=== PATIENT | male | born 1990 | race Caucasian/White ===

== ENCOUNTER 2022-12-15 21:18 | Inpatient (IN) ==
[2022-12-15] MEDS ORDERED: PLASMA-LYTE A 2,000 ML IV ONE (21:50)
[2022-12-15] MEDS ORDERED: DKA GOAL RANGE 150-250 mg/dl ONE (22:03)
[2022-12-15] MEDS ORDERED: STAT IV Infusion **Titration per Protocol STA (22:03)
[2022-12-15] MEDS ORDERED: PHARMACY GLYCEMIC MGMT CONSULT PRN (22:03)
[2022-12-15] MEDS ORDERED: NovoLIN-R INSULIN PER UNIT CHARGE IV STA (22:03)
[2022-12-15 22:05] LABS: Basophils # (auto) 0.09 K/uL (0-0.2); Basophils % (auto) 0.5 %; Eosinophils # (auto) 0.01 K/uL (0-0.50); Eosinophils % (auto) 0.1 %; Hematocrit (blood only) 42.3 % (42.0-52.0); Immature Granulocytes # (auto) 0.23 K/uL (0.01-0.20); Immature Granulocytes % (auto) 1.2 %; Lymphocytes # (auto) 1.89 K/uL (1.2-3.4); Lymphocytes % (auto) 9.7 %; Mean Corpuscular Hemoglobin 30.4 pg (25.0-34.0); Mean Corpuscular Hgb Conc 33.1 g/dL (32.0-36.0); Mean Platelet Volume 11.3 fL (9.4-12.4); Monocytes # (auto) 1.13 K/uL (0.11-0.59); Monocytes % (auto) 5.8 %; Neutrophils # (auto) 16.22 K/uL (1.40-6.50); Neutrophils % (auto) 82.7 %; Platelet Count 260 K/uL (130-400); RDW Coefficient of Variation 12.1 % (11.5-14.5); RDW Standard Deviation 41.2 fL (36.4-46.3); White Blood Count 19.57 K/ul (4.8-10.8)
[2022-12-15 22:13] LABS: iSTAT Blood Urea Nitrogen 43 mg/dl (7-18); iSTAT Carbon Dioxide 7 mmol/L (24-31); iSTAT Chloride 97 mmol/L (101-112); iSTAT Creatinine 1.3 mg/dl (0.6-1.3); iSTAT Glucose > 700 mg/dl (70-99); iSTAT Hematocrit 46 % (42-52); iSTAT Hemoglobin 15.6 g/dl (14.0-18.0); iSTAT Ionized Calcium 1.19 mmol/l (1.12-1.32); iSTAT Potassium 6.9 mmol/L (3.3-5.0); iSTAT Sodium 123 mmol/L (135-144)
[2022-12-15 22:15] LABS: INR 0.9 (0.9-1.1); Prothrombin Time 9.8 Seconds (9.0-12.0)
[2022-12-15] MEDS ORDERED: INSULIN REGULAR 250 UNITS in SODIUM CHLORIDE 0.9% 247.5 ML IV SCH (22:15)
[2022-12-15] MEDS ORDERED: NovoLIN-R BOLUS FROM BAG IV ONE (22:15)
[2022-12-15 22:27] LABS: Appearance Urine Clear (Clear); Bilirubin Urine Negative (Negative); Blood Urine Negative (Negative); Color Urine Yellow; Glucose Urine UA 3+ (Negative); Ketones Urine 4+ (Negative); Leukocyte Esterase Urine Negative (Negative); Nitrite Urine Negative (Negative); Protein Urine Negative (Negative); Specific Gravity Urine 1.026 (1.000-1.030); Urobilinogen Urine Negative (Negative)
[2022-12-15] MEDS ORDERED: ONDANSETRON INJ 2 MG/ML 2 ML VIAL IV STA (22:34)
[2022-12-15] MEDS ORDERED: FAMOTIDINE 20MG IV PUSH 20 MG/5 ML SYR IV STA (22:34)
[2022-12-15 22:44] LABS: Albumin Globulin Ratio 1.5 (0.9-2); Albumin Level 4.4 gm/dl (3.4-5.0); Bilirubin,Total 0.6 mg/dl (0.2-1.0); Calcium 10.2 mg/dl (8.6-10.3); Est GFR (African American) 57.6 ml/min; Est GFR (Non-African American) 49.7 ml/min; Globulin 2.9 gm/dl (2.5-4.0); Magnesium 2.6 mg/dl (1.7-2.4); Potassium 6.6 mmol/L (3.5-5.1); Total Protein 7.3 gm/dl (6.0-8.3)
[2022-12-15] MEDS ORDERED: PLASMA-LYTE A 1,000 ML IV ONE (23:01)
[2022-12-15] MEDS ORDERED: CALCIUM GLUCONATE 1,000 MG/60 ML BAG IV STA (23:39)
[2022-12-15] MEDS ORDERED: SODIUM BICARB 8.4% INJ 50 MEQ/50 ML SYR IV STA (23:39)
[2022-12-15 23:53] LABS: Base Excess VBG -23.2 mEq/L; HCO3 VBG 5 mmol/L; Oxygen Saturation VBG 62.3 %; PCO2 VBG 19 mmHg (38-50); PO2 VBG 39 mmHg; pH VBG 7.06 (7.36-7.41)
--- NOTE | 2022-12-16 00:23 | History & Physical Report ---
Date of Service December 16, 2022 Assessment & Plan (1) Hyperglycemic crisis in diabetes mellitus: Plan: HHS/DKA combo hx DM1, suboptimal control as of recent hemoglobin A1c of 13.3 last September 2022 Secondary to medication noncompliance, mild cognitive impairment Hyperkalemia, ARF, AGMA secondary to illness Episodic encephalopathy secondary to illness hypertension, stable, patient not on maintenance medications hyperlipidemia as per records hx schizoaffective disorder/borderline personality disorder/anxiety/mood disorder, stable as per patient chronic anemia, hemoglobin better than baseline likely secondary to hemoconcentration ongoing vape use ICU IVF, IV insulin Pharmacy glycemic control consultation as ordered by ER provider Update hemoglobin A1c Monitor creatinine response to IVF Calcium gluconate 1 dose for hyperkalemia Resume home neuropsychotropic meds once patient more awake. Nicotine patch as needed PT OT once medically stable DVT prophylaxis Heparin subcu Full code Total critical care time was 45 minutes. Text document was generated using [employer] voice recognition software. It may contain grammatical or spelling errors. Kindly contact undersigned for clarification of any documentation item in question. History of Present Illness Chief Complaint: High sugars, DKA-ing Primary Care Provider: Dr. Nolen History obtained from patient and records. Medical history significant for DM 1, hypertension, hyperlipidemia, GERD, history SMA syndrome, schizoaffective disorder/borderline personality disorder/anxiety/mood disorder, mild cognitive impairment, chronic anemia (baseline hemoglobin of 11), ongoing vape use. Patient diagnosed to have DM 1 since age 9. Multiple admissions at the [facility] since 2018 for DKA. Four admissions so far in 2022. Last confinement was 2 months ago. Patient in [place] the last 2 days to talk at a mental health conference. He left his insulin supplies at home in [facility]. Last night, patient noted nausea, vomiting, abdominal discomfort and shortness of breath which happens when he starts 'DKA-ing'. No actual chest pain or headache symptoms. Blood sugar 900s upon arrival at the ER. Multiple IVF boluses and IV insulin initiated at the ER. Patient starting to feel better. Medical History as above Surgical History : Tonsillectomy/adenoidectomy, cholecystectomy, duodenojejunostomy Family History : DM, heart disease Personal/Social history : Vape use, no EtOH intake Allergies Allergy/AdvReac Type Severity Reaction Status Date / Time No Known Allergies Allergy Verified 06/06/23 22:06 Home Medications Medication Instructions Recorded Confirmed Type acetaminophen 325 mg tablet 650 mg PO Q4H PRN PAIN/FEVER 12/15/22 12/15/22 History (Tylenol) aripiprazole 2 mg tablet (Abilify) 2 mg PO DAILY 12/15/22 12/15/22 History docusate sodium 100 mg capsule 100 mg PO DAILY 12/15/22 12/15/22 History famotidine 20 mg tablet 20 mg PO DAILY 12/15/22 12/15/22 History gabapentin 300 mg capsule 300 mg PO TID 12/15/22 12/15/22 History insulin aspart U-100 100 unit/mL 10 unit subcut TIDM 12/15/22 12/15/22 History (3 mL) subcutaneous pen (Novolog FlexPen U-100 Insulin aspart) insulin glargine 100 unit/mL (3 100 unit subcut QAM 12/15/22 12/15/22 History mL) subcutaneous pen (Lantus Solostar U-100 Insulin) lithium carbonate 450 mg 450 mg PO HS 12/15/22 12/15/22 History tablet,extended release ondansetron HCl 4 mg tablet 4 mg PO Q8H PRN NAUSEA/VOMITING 12/15/22 12/15/22 History pantoprazole 40 mg tablet,delayed 40 mg PO DAILY 12/15/22 12/15/22 History release trazodone 100 mg tablet 100 mg PO HS PRN Sleep 12/15/22 12/15/22 History venlafaxine 150 mg 150 mg PO QAM 12/15/22 12/15/22 History capsule,extended release 24 hr (Effexor XR) Past Med/Surg History Medical History (Updated 12/16/22 @ 06:26 by JONATHAN Guzman) Anxiety disorder Schizoaffective disorder Type 1 diabetes Social History Smoking Status: Current every day smoker Second Hand Exposure: Yes; Do You Dip or Chew Tobacco: No; Tobacco Cessation Education Requested by Patient: No Hx Alcohol Use: No Hx Substance Use: No Preferred Language: [place] Communication Ability: Effective Picture Booker Required: No Beliefs That Will Affect Care: None Current Living Situation: Alone Other Information That Helps Us Care for You: No Feels Safe at Home: Yes Safety Concerns: Feels Safe At This Time Assistive Devices: Glasses Review of Systems Review of Systems: As per HPI, all other systems reviewed and negative Physical Exam Physical Exam: GENERAL: Episodic lethargy, slightly uncomfortable, pleasant, no respiratory distress SKIN: Pallor, warm HEENT: Bespectacled, pale palpebral conjunctivae, no ptosis, dry buccal mucosa NECK : Supple, no tenderness CHEST : CTA, no tenderness HEART : Tachycardic, no obvious murmurs ABDOMEN: Some distention, minimal epigastric tenderness EXTREMITIES : No LE swelling/tenderness, no other conspicuous deformities noted NEUROLOGIC : Coherent, no facial asymmetry, no other gross focality Results & Data Results & Data Vital Signs (Past 12 Hours) Vital Signs Temp Pulse Pulse Resp BP BP Pulse Ox 12/15/22 23:30 103 H 19 134/59 L 99 12/15/22 23:00 103 H 25 H 132/57 L 100 12/15/22 22:09 116 H 24 147/66 H 97 12/15/22 22:09 98 12/15/22 21:33 113 H 12/15/22 21:32 37 C 108 H 24 147/66 H 96 O2 Del Method 12/15/22 23:30 Room Air 12/15/22 23:00 Room Air 12/15/22 22:09 Room Air 12/15/22 22:09 Room Air 12/15/22 21:33 12/15/22 21:32 Room Air Laboratory Results Laboratory Results WBC 19.57 K/ul (4.8-10.8) H 12/15/22 21:30 RBC 4.60 M/uL (4.70-6.10) L 12/15/22 21:30 Hgb 14.0 g/dl (14.0-18.0) 12/15/22 21:30 POC Hgb 15.6 g/dl (14.0-18.0) 12/15/22 22:01 Hct 42.3 % (42.0-52.0) 12/15/22 21:30 POC Hct 46 % (42-52) 12/15/22 22:01 MCV 92.0 fL (80.0-100.0) 12/15/22 21:30 MCH 30.4 pg (25.0-34.0) 12/15/22 21:30 MCHC 33.1 g/dL (32.0-36.0) 12/15/22 21:30 RDW Std Deviation 41.2 fL (36.4-46.3) 12/15/22 21:30 RDW Coeff of Jaya 12.1 % (11.5-14.5) 12/15/22 21:30 Plt Count 260 K/uL (130-400) 12/15/22 21:30 MPV 11.3 fL (9.4-12.4) 12/15/22 21:30 Immature Gran % (Auto) 1.2 % 12/15/22 21:30 Neut % (Auto) 82.7 % 12/15/22 21:30 Lymph % (Auto) 9.7 % 12/15/22 21:30 [place] % (Auto) 5.8 % 12/15/22 21:30 Eos % (Auto) 0.1 % 12/15/22 21:30 Baso % (Auto) 0.5 % 12/15/22 21:30 Neut # (Auto) 16.22 K/uL (1.40-6.50) H 12/15/22 21:30 Lymph # (Auto) 1.89 K/uL (1.2-3.4) 12/15/22 21:30 [place] # (Auto) 1.13 K/uL (0.11-0.59) H 12/15/22 21:30 Eos # (Auto) 0.01 K/uL (0-0.50) 12/15/22 21:30 Baso # (Auto) 0.09 K/uL (0-0.2) 12/15/22 21:30 Immature Gran # (Auto) 0.23 K/uL (0.01-0.20) H 12/15/22 21:30 PT 9.8 Seconds (9.0-12.0) 12/15/22 21:30 INR 0.9 (0.9-1.1) 12/15/22 21:30 VBG pH 7.06 (7.36-7.41) L 12/15/22 23:40 VBG pCO2 19 mmHg (38-50) L 12/15/22 23:40 VBG pO2 39 mmHg 12/15/22 23:40 VBG HCO3 5 mmol/L 12/15/22 23:40 VBG O2 Saturation 62.3 % 12/15/22 23:40 VBG Base Excess -23.2 mEq/L 12/15/22 23:40 POC Sodium 123 mmol/L (135-144) L 12/15/22 22:01 Sodium 124 mmol/L (136-145) L 12/15/22 21:30 POC Potassium 6.9 mmol/L (3.3-5.0) H* 12/15/22 22:01 Potassium 6.6 mmol/L (3.5-5.1) H* 12/15/22 21:30 POC Chloride 97 mmol/L (101-112) L 12/15/22 22:01 Chloride 83 mmol/L (98-107) L 12/15/22 21:30 Carbon Dioxide 6 mmol/L (21-32) L* 12/15/22 21:30 POC Total CO2 7 mmol/L (24-31) L* 12/15/22 22:01 Anion Gap 35 (3-11) H 12/15/22 21:30 POC Anion Gap 27.0 mmol/L (16-25) H 12/15/22 22:01 POC BUN 43 mg/dl (7-18) H 12/15/22 22:01 BUN 48 mg/dl (6-23) H 12/15/22 21:30 Creatinine 1.78 mg/dl (0.6-1.4) H 12/15/22 21:30 POC Creatinine 1.3 mg/dl (0.6-1.3) 12/15/22 22:01 Est Cr Clr Drug Dosing 64.0 ml/min 12/15/22 21:30 Est GFR ( Amer) 57.6 ml/min 12/15/22 21:30 Est GFR (Non-Af Amer) 49.7 ml/min 12/15/22 21:30 BUN/Creatinine Ratio 27.0 (10-20) H 12/15/22 21:30 Glucose 964 mg/dl (70-99(Fasting)) H* 12/15/22 21:30 POC Glucose > 600 mg/dl (70-99) H* 12/15/22 23:24 POC Glucose (other) > 700 mg/dl (70-99) H* 12/15/22 22:01 Osmolality 355 mOsm/kg (280-300) H* 12/15/22 21:30 Lactate 3.4 mmol/L (0.4-2.0) H* 12/15/22 23:41 Calcium 10.2 mg/dl (8.6-10.3) 12/15/22 21:30 POC Ioniz Calcium [place] 1.19 mmol/l (1.12-1.32) 12/15/22 22:01 Magnesium 2.6 mg/dl (1.7-2.4) H 12/15/22 21:30 Total Bilirubin 0.6 mg/dl (0.2-1.0) 12/15/22 21:30 AST 27 U/L (13-39) 12/15/22 21:30 ALT 32 U/L (7-52) 12/15/22 21:30 Alkaline Phosphatase 154 U/L (34-104) H 12/15/22 21:30 Total Protein 7.3 gm/dl (6.0-8.3) 12/15/22 21:30 Albumin 4.4 gm/dl (3.4-5.0) 12/15/22 21:30 Globulin 2.9 gm/dl (2.5-4.0) 12/15/22 21:30 Albumin/Globulin Ratio 1.5 (0.9-2) 12/15/22 21:30 Procalcitonin 0.30 ng/ml (0-0.5) 12/15/22 21:30 TSH 0.414 uIu/ml (0.300-4.500) 12/15/22 21:30 Urine Color Yellow 12/15/22 22:05 Urine Appearance Clear (Clear) 12/15/22 22:05 Urine pH 5.0 (4.5-7.5) 12/15/22 22:05 Ur Specific [place] 1.026 (1.000-1.030) 12/15/22 22:05 Urine Protein Negative (Negative) 12/15/22 22:05 Urine Glucose (UA) 3+ (Negative) H 12/15/22 22:05 Urine Ketones 4+ (Negative) H 12/15/22 22:05 Urine Blood Negative (Negative) 12/15/22 22:05 Urine Nitrite Negative (Negative) 12/15/22 22:05 Urine Bilirubin Negative (Negative) 12/15/22 22:05 Urine Urobilinogen Negative (Negative) 12/15/22 22:05 Ur Leukocyte Esterase Negative (Negative) 12/15/22 22:05 SARS-CoV-2, RNA, NAAT NEGATIVE (NEGATIVE) 12/15/22 22:25 Diagnostic Findings Chest x-ray as per my interpretation elevated right hemidiaphragm, no infiltrate EKG as per my interpretation : Rate 105, sinus tachycardia, normal axis, no ischemia
[2022-12-16] MEDS ORDERED: oxyCODONE HCL IR 5 MG TAB (IMMEDIATE RELEASE) PO PRN (00:29)
[2022-12-16] MEDS ORDERED: PROMETHAZINE HCL 6.25 MG in SODIUM CHLORIDE 0.9% 50 ML IV PRN (00:29)
[2022-12-16] MEDS ORDERED: ACETAMINOPHEN 325 MG TAB PO PRN ×2 (00:29→01:06)
[2022-12-16 00:30] LABS: BUN Creatinine Ratio 27.5 (10-20); Calcium 9.4 mg/dl (8.6-10.3); Creatinine Clr Calc Pharmacy 68.3 ml/min; Est GFR (African American) 62.3 ml/min; Est GFR (Non-African American) 53.7 ml/min; Potassium 5.5 mmol/L (3.5-5.1)
[2022-12-16] MEDS ORDERED: SODIUM CHLORIDE 0.9% 1000ML 1,000 ML IV ONE ×2 (00:30→01:30)
--- NOTE | 2022-12-16 01:02 | Emergency Department Note ---
Impression & Plan DKA (diabetic ketoacidosis), Type 1 diabetes, Acute hyperkalemia, Nausea & vomiting, Acute dehydration ED Provider Note NAME: MARY TONY AGE: 32 SEX: M : 1990 ARRIVES VIA: Ambulance INFORMANT: Patient, ED PROVIDER(S): Vasyl Zhneg MD CHIEF COMPLAINT: Nausea vomiting, elevated blood sugar MEDICAL DECISION MAKING: Patient presents for nausea vomiting and elevated blood sugar. The patient does appear to be in DKA. [id number] was obtained along with IV access to IV lines IV fluids given along with IV Zofran. Patient's [id number] does show that the patient has an blood sugar greater than 700 with a Otis greater than 6. The patient was ordered 10 of IV insulin. The patient was also ordered 2 additional liters of IV Plasma-Lyte and then insulin drip was ordered. I did speak with pharmacy pharmacist Antoine in order to help facilitate the insulin drip. The patient's blood work from the lab did show a blood sugar greater than 900. Patient did have a white count 19 believe this is likely reactive given the patient's nausea and vomiting which is occurred throughout today. Platelet count is normal. Kidney function with a creat of 1.78 and potassium of 6.6 with a sodium of 124. Patient's bicarb is 6 with a gap of 35. Magnesium is high at 2.6. Pro-Nasir is not elevated. Patient's lactate of 3.9. Urinalysis does show ketones and glucose. Given the patient's dehydration and DKA I did speak with the on-call hospitalist service Dr. Bauer and patient was admitted to the medicine service. Patient was ordered additional Plasma-Lyte IV fluids. Critical Care: I have personally spent 75 minutes of critical care time in direct management of this patient. This includes bedside care, interpretation of diagnostic studies, and testing, discussion with consultants, patient, and family members, and other require inpatient management activities. This 75 minutes is in excess of all separately billable procedures. Prior /Outside records reviewed: I did review the patient's medication list from [facility]. Differential diagnosis: DKA, hyperglycemia, dehydration gastroenteritis, food borne illness, infections, appendicitis, diverticulitis, inflammatory bowel disease, obstruction, GI bleed, biliary pathology, volvulus, as well as other pathologies. Diagnostics, as interpreted by me: ECG: Sinus tachycardia, rate of 106, normal intervals normal axis no ST elevations. Cardiac monitoring: An order was placed for continuous cardiac monitoring. The monitor shows a rate of 112 with tachycardic and regular rhythm. Patient was placed on pulse oximetry Medical decision rules: None Imaging studies: See below HPI: Patient presents as he is appear at a conference. Patient states that he forgot his insulin. The patient denies any chest pains or shortness of breath. Patient has had associated nausea and vomiting today and has been DKA in the past. No blood in the vomit. Patient does not been able to take anything for his symptoms given his vomiting and nausea. No recent falls or trauma. Patient denies any known sick contacts treatment well water use or antibiotics. Patient does complain of generalized abdominal discomfort but no significant pain. No cough or fever. PAST MEDICAL HISTORY: See Below PAST SURGICAL HISTORY: See Below SOCIAL HISTORY: See Below HOME MEDICATIONS: See Below ALLERGIES: See Below VITALS: See Below PHYSICAL EXAMINATION: GENERAL: Ill in appearance, wearing glasses. Holding an emesis bag. EYE EXAM: Normal conjunctiva. PERRL, no anisocoria and EOM's grossly intact w/o pain. Oropharynx: Dry mucous membranes. NECK: Supple, no nuchal rigidity, no adenopathy, non-tender. No signs of meningismus. FROM of the neck with good chin to chest and neck extension. No stridor. LUNGS: Clear to auscultation. Normal chest wall mechanics. HEART: Tachycardic and regular, no MRG. ABDOMEN: Abdomen soft, mild diffuse discomfort but without peritonitis, no masses, no rebound or guarding. BACK: No CVA TTP. SKIN: No rashes and no bruising. UPPER EXTREMITIES: Upper extremities are grossly normal. LOWER EXTREMITIES: Grossly normal, no edema. NEURO EXAM: A&O x3, cranial nerves II-XII grossly intact, normal speech, moves all 4 extremities. Past Med/Surg History Medical History Anxiety disorder Schizoaffective disorder Type 1 diabetes Surgical History History of tonsillectomy S/P laparoscopic cholecystectomy Social History Smoking Status: Current every day smoker Second Hand Exposure: Yes; Do You Dip or Chew Tobacco: No; Tobacco Cessation Education Requested by Patient: No Hx Alcohol Use: No Hx Substance Use: No Preferred Language: Gambian Communication Ability: Effective Manager Clinical Applications Required: No Beliefs That Will Affect Care: None Current Living Situation: Alone Other Information That Helps Us Care for You: No Feels Safe at Home: Yes Safety Concerns: Feels Safe At This Time Assistive Devices: Other Allergies Allergies Allergy/AdvReac Type Severity Reaction Status Date / Time No Known Allergies Allergy Verified 12/15/22 22:06 Home Meds Home Medications Medication Instructions Recorded Confirmed acetaminophen 325 mg tablet 650 mg PO Q4H PRN PAIN/FEVER 12/15/22 12/15/22 (Tylenol) aripiprazole 2 mg tablet (Abilify) 2 mg PO DAILY 12/15/22 12/15/22 docusate sodium 100 mg capsule 100 mg PO DAILY 12/15/22 12/15/22 famotidine 20 mg tablet 20 mg PO DAILY 12/15/22 12/15/22 gabapentin 300 mg capsule 300 mg PO TID 12/15/22 12/15/22 insulin aspart U-100 100 unit/mL 10 unit subcut TIDM 12/15/22 12/15/22 (3 mL) subcutaneous pen (Novolog FlexPen U-100 Insulin aspart) insulin glargine 100 unit/mL (3 100 unit subcut QAM 12/15/22 12/15/22 mL) subcutaneous pen (Lantus Solostar U-100 Insulin) lithium carbonate 450 mg 450 mg PO HS 12/15/22 12/15/22 tablet,extended release ondansetron HCl 4 mg tablet 4 mg PO Q8H PRN NAUSEA/VOMITING 12/15/22 12/15/22 pantoprazole 40 mg tablet,delayed 40 mg PO DAILY 12/15/22 12/15/22 release trazodone 100 mg tablet 100 mg PO HS PRN Sleep 12/15/22 12/15/22 venlafaxine 150 mg 150 mg PO QAM 12/15/22 12/15/22 capsule,extended release 24 hr (Effexor XR) Results & Data (ED) Vital Signs Vital Signs - 24 hr 12/15/22 21:32 12/15/22 21:33 12/15/22 22:09 Temperature 37 C Temperature Source Oral Pulse Rate 108 H 113 H Pulse Rate [Left Apical] Pulse Rhythm [Left Apical] Pulse Strength [Left Apical] Respiratory Rate 24 Respiratory Effort / Characteristics Spontaneous Respiratory Depth Normal Respiratory Pattern Blood Pressure 147/66 H Blood Pressure [Left Arm] Blood Pressure Mean 93 Blood Pressure Mean [Left Arm] Pulse Oximetry 96 98 Oxygen Delivery Method Room Air Room Air Sepsis Recent Fever Within 48 Hours No Sepsis New/Unexplained Change in Mental Status No Sepsis Action Taken by Nursing No Action Required 12/15/22 22:09 12/15/22 23:00 12/15/22 23:30 Temperature Temperature Source Pulse Rate 103 H 103 H Pulse Rate [Left Apical] 116 H Pulse Rhythm [Left Apical] Regular Pulse Strength [Left Apical] Normal Respiratory Rate 24 25 H 19 Respiratory Effort / Characteristics Spontaneous Respiratory Depth Normal Respiratory Pattern Kussmaul Blood Pressure 132/57 L 134/59 L Blood Pressure [Left Arm] 147/66 H Blood Pressure Mean 82 84 Blood Pressure Mean [Left Arm] 93 Pulse Oximetry 97 100 99 Oxygen Delivery Method Room Air Room Air Room Air Sepsis Recent Fever Within 48 Hours Sepsis New/Unexplained Change in Mental Status Sepsis Action Taken by Nursing 12/16/22 00:00 Temperature Temperature Source Pulse Rate 105 H Pulse Rate [Left Apical] Pulse Rhythm [Left Apical] Pulse Strength [Left Apical] Respiratory Rate 19 Respiratory Effort / Characteristics Respiratory Depth Respiratory Pattern Blood Pressure 122/62 Blood Pressure [Left Arm] Blood Pressure Mean 82 Blood Pressure Mean [Left Arm] Pulse Oximetry 99 Oxygen Delivery Method Room Air Sepsis Recent Fever Within 48 Hours Sepsis New/Unexplained Change in Mental Status Sepsis Action Taken by [facility] Medications Current Medication List: was personally reviewed by me Laboratory Data Attestation: I reviewed the patient's lab results. 12/15/22 21:30 12/15/22 23:37 Lab Results 12/15/22 12/15/22 12/15/22 Range/Units 21:30 21:30 21:30 WBC 19.57 H (4.8-10.8) K/ul RBC 4.60 L (4.70-6.10) M/uL Hgb 14.0 (14.0-18.0) g/dl POC Hgb (14.0-18.0) g/dl Hct 42.3 (42.0-52.0) % POC Hct (42-52) % MCV 92.0 (80.0-100.0) fL MCH 30.4 (25.0-34.0) pg MCHC 33.1 (32.0-36.0) g/dL RDW Std Deviation 41.2 (36.4-46.3) fL RDW Coeff of Jaya 12.1 (11.5-14.5) % Plt Count 260 (130-400) K/uL MPV 11.3 (9.4-12.4) fL Immature Gran % (Auto) 1.2 % Neut % (Auto) 82.7 % Lymph % (Auto) 9.7 % Sutter % (Auto) 5.8 % Eos % (Auto) 0.1 % Baso % (Auto) 0.5 % Neut # (Auto) 16.22 H (1.40-6.50) K/uL Lymph # (Auto) 1.89 (1.2-3.4) K/uL Sutter # (Auto) 1.13 H (0.11-0.59) K/uL Eos # (Auto) 0.01 (0-0.50) K/uL Baso # (Auto) 0.09 (0-0.2) K/uL Immature Gran # (Auto) 0.23 H (0.01-0.20) K/uL PT 9.8 (9.0-12.0) Seconds INR 0.9 (0.9-1.1) VBG pH (7.36-7.41) VBG pCO2 (38-50) mmHg VBG pO2 mmHg VBG HCO3 mmol/L VBG O2 Saturation % VBG Base Excess mEq/L POC Sodium (135-144) mmol/L Sodium 124 L (136-145) mmol/L POC Potassium (3.3-5.0) mmol/L Potassium 6.6 H* (3.5-5.1) mmol/L POC Chloride (101-112) mmol/L Chloride 83 L (98-107) mmol/L Carbon Dioxide 6 L* (21-32) mmol/L POC Total CO2 (24-31) mmol/L Anion Gap 35 H (3-11) POC Anion Gap (16-25) mmol/L POC BUN (7-18) mg/dl BUN 48 H (6-23) mg/dl Creatinine 1.78 H (0.6-1.4) mg/dl POC Creatinine (0.6-1.3) mg/dl Est Cr Clr Drug Dosing 64.0 ml/min Est GFR ( Amer) 57.6 ml/min Est GFR (Non-Af Amer) 49.7 ml/min BUN/Creatinine Ratio 27.0 H (10-20) Glucose 964 H* (70-99(Fasting)) mg/dl POC Glucose (70-99) mg/dl POC Glucose (other) (70-99) mg/dl Osmolality (280-300) mOsm/kg Lactate (0.4-2.0) mmol/L Calcium 10.2 (8.6-10.3) mg/dl POC Ioniz Calcium Geovanna (1.12-1.32) mmol/l Phosphorus (2.5-4.9) mg/dl Magnesium 2.6 H (1.7-2.4) mg/dl Total Bilirubin 0.6 (0.2-1.0) mg/dl AST 27 (13-39) U/L ALT 32 (7-52) U/L Alkaline Phosphatase 154 H (34-104) U/L Total Protein 7.3 (6.0-8.3) gm/dl Albumin 4.4 (3.4-5.0) gm/dl Globulin 2.9 (2.5-4.0) gm/dl Albumin/Globulin Ratio 1.5 (0.9-2) Lipase (11-82) U/L Procalcitonin (0-0.5) ng/ml TSH (0.300-4.500) uIu/ml Urine Color Urine Appearance (Clear) Urine pH (4.5-7.5) Ur Specific Uriah (1.000-1.030) Urine Protein (Negative) Urine Glucose (UA) (Negative) Urine Ketones (Negative) Urine Blood (Negative) Urine Nitrite (Negative) Urine Bilirubin (Negative) Urine Urobilinogen (Negative) Ur Leukocyte Esterase (Negative) [place] (0.6-1.2) mmol/L SARS-CoV-2, RNA, NAAT (NEGATIVE) 12/15/22 12/15/22 12/15/22 Range/Units 21:30 21:30 21:30 WBC (4.8-10.8) K/ul RBC (4.70-6.10) M/uL Hgb (14.0-18.0) g/dl POC Hgb (14.0-18.0) g/dl Hct (42.0-52.0) % POC Hct (42-52) % MCV (80.0-100.0) fL MCH (25.0-34.0) pg MCHC (32.0-36.0) g/dL RDW Std Deviation (36.4-46.3) fL RDW Coeff of Jaya (11.5-14.5) % Plt Count (130-400) K/uL MPV (9.4-12.4) fL Immature Gran % (Auto) % Neut % (Auto) % Lymph % (Auto) % Sutter % (Auto) % Eos % (Auto) % Baso % (Auto) % Neut # (Auto) (1.40-6.50) K/uL Lymph # (Auto) (1.2-3.4) K/uL Sutter # (Auto) (0.11-0.59) K/uL Eos # (Auto) (0-0.50) K/uL Baso # (Auto) (0-0.2) K/uL Immature Gran # (Auto) (0.01-0.20) K/uL PT (9.0-12.0) Seconds INR (0.9-1.1) VBG pH (7.36-7.41) VBG pCO2 (38-50) mmHg VBG pO2 mmHg VBG HCO3 mmol/L VBG O2 Saturation % VBG Base Excess mEq/L POC Sodium (135-144) mmol/L Sodium (136-145) mmol/L POC Potassium (3.3-5.0) mmol/L Potassium (3.5-5.1) mmol/L POC Chloride (101-112) mmol/L Chloride (98-107) mmol/L Carbon Dioxide (21-32) mmol/L POC Total CO2 (24-31) mmol/L Anion Gap (3-11) POC Anion Gap (16-25) mmol/L POC BUN (7-18) mg/dl BUN (6-23) mg/dl Creatinine (0.6-1.4) mg/dl POC Creatinine (0.6-1.3) mg/dl Est Cr Clr Drug Dosing ml/min Est GFR ( Amer) ml/min Est GFR (Non-Af Amer) ml/min BUN/Creatinine Ratio (10-20) Glucose (70-99(Fasting)) mg/dl POC Glucose (70-99) mg/dl POC Glucose (other) (70-99) mg/dl Osmolality 355 H* (280-300) mOsm/kg Lactate (0.4-2.0) mmol/L Calcium (8.6-10.3) mg/dl POC Ioniz Calcium Geovanna (1.12-1.32) mmol/l Phosphorus (2.5-4.9) mg/dl Magnesium (1.7-2.4) mg/dl Total Bilirubin (0.2-1.0) mg/dl AST (13-39) U/L ALT (7-52) U/L Alkaline Phosphatase (34-104) U/L Total Protein (6.0-8.3) gm/dl Albumin (3.4-5.0) gm/dl Globulin (2.5-4.0) gm/dl Albumin/Globulin Ratio (0.9-2) Lipase (11-82) U/L Procalcitonin 0.30 (0-0.5) ng/ml TSH 0.414 (0.300-4.500) uIu/ml Urine Color Urine Appearance (Clear) Urine pH (4.5-7.5) Ur Specific Uriah (1.000-1.030) Urine Protein (Negative) Urine Glucose (UA) (Negative) Urine Ketones (Negative) Urine Blood (Negative) Urine Nitrite (Negative) Urine Bilirubin (Negative) Urine Urobilinogen (Negative) Ur Leukocyte Esterase (Negative) [place] (0.6-1.2) mmol/L SARS-CoV-2, RNA, NAAT (NEGATIVE) 12/15/22 12/15/22 12/15/22 Range/Units 21:50 22:01 22:05 WBC (4.8-10.8) K/ul RBC (4.70-6.10) M/uL Hgb (14.0-18.0) g/dl POC Hgb 15.6 (14.0-18.0) g/dl Hct (42.0-52.0) % POC Hct 46 (42-52) % MCV (80.0-100.0) fL MCH (25.0-34.0) pg MCHC (32.0-36.0) g/dL RDW Std Deviation (36.4-46.3) fL RDW Coeff of Jaya (11.5-14.5) % Plt Count (130-400) K/uL MPV (9.4-12.4) fL Immature Gran % (Auto) % Neut % (Auto) % Lymph % (Auto) % [place] % (Auto) % Eos % (Auto) % Baso % (Auto) % Neut # (Auto) (1.40-6.50) K/uL Lymph # (Auto) (1.2-3.4) K/uL Sutter # (Auto) (0.11-0.59) K/uL Eos # (Auto) (0-0.50) K/uL Baso # (Auto) (0-0.2) K/uL Immature Gran # (Auto) (0.01-0.20) K/uL PT (9.0-12.0) Seconds INR (0.9-1.1) VBG pH (7.36-7.41) VBG pCO2 (38-50) mmHg VBG pO2 mmHg VBG HCO3 mmol/L VBG O2 Saturation % VBG Base Excess mEq/L POC Sodium 123 L (135-144) mmol/L Sodium (136-145) mmol/L POC Potassium 6.9 H* (3.3-5.0) mmol/L Potassium (3.5-5.1) mmol/L POC Chloride 97 L (101-112) mmol/L Chloride (98-107) mmol/L Carbon Dioxide (21-32) mmol/L POC Total CO2 7 L* (24-31) mmol/L Anion Gap (3-11) POC Anion Gap 27.0 H (16-25) mmol/L POC BUN 43 H (7-18) mg/dl BUN (6-23) mg/dl Creatinine (0.6-1.4) mg/dl POC Creatinine 1.3 (0.6-1.3) mg/dl Est Cr Clr Drug Dosing ml/min Est GFR ( Amer) ml/min Est GFR (Non-Af Amer) ml/min BUN/Creatinine Ratio (10-20) Glucose (70-99(Fasting)) mg/dl POC Glucose (70-99) mg/dl POC Glucose (other) > 700 H* (70-99) mg/dl Osmolality (280-300) mOsm/kg Lactate 3.9 H* (0.4-2.0) mmol/L Calcium (8.6-10.3) mg/dl POC Ioniz Calcium Geovanna 1.19 (1.12-1.32) mmol/l Phosphorus (2.5-4.9) mg/dl Magnesium (1.7-2.4) mg/dl Total Bilirubin (0.2-1.0) mg/dl AST (13-39) U/L ALT (7-52) U/L Alkaline Phosphatase (34-104) U/L Total Protein (6.0-8.3) gm/dl Albumin (3.4-5.0) gm/dl Globulin (2.5-4.0) gm/dl Albumin/Globulin Ratio (0.9-2) Lipase (11-82) U/L Procalcitonin (0-0.5) ng/ml TSH (0.300-4.500) uIu/ml Urine Color Yellow Urine Appearance Clear (Clear) Urine pH 5.0 (4.5-7.5) Ur Specific Uriah 1.026 (1.000-1.030) Urine Protein Negative (Negative) Urine Glucose (UA) 3+ H (Negative) Urine Ketones 4+ H (Negative) Urine Blood Negative (Negative) Urine Nitrite Negative (Negative) Urine Bilirubin Negative (Negative) Urine Urobilinogen Negative (Negative) Ur Leukocyte Esterase Negative (Negative) [place] (0.6-1.2) mmol/L SARS-CoV-2, RNA, NAAT (NEGATIVE) 12/15/22 12/15/22 12/15/22 Range/Units 22:25 22:45 23:24 WBC (4.8-10.8) K/ul RBC (4.70-6.10) M/uL Hgb (14.0-18.0) g/dl POC Hgb (14.0-18.0) g/dl Hct (42.0-52.0) % POC Hct (42-52) % MCV (80.0-100.0) fL MCH (25.0-34.0) pg MCHC (32.0-36.0) g/dL RDW Std Deviation (36.4-46.3) fL RDW Coeff of Jaya (11.5-14.5) % Plt Count (130-400) K/uL MPV (9.4-12.4) fL Immature Gran % (Auto) % Neut % (Auto) % Lymph % (Auto) % [place]utter % (Auto) % Eos % (Auto) % Baso % (Auto) % Neut # (Auto) (1.40-6.50) K/uL Lymph # (Auto) (1.2-3.4) K/uL Sutter # (Auto) (0.11-0.59) K/uL Eos # (Auto) (0-0.50) K/uL Baso # (Auto) (0-0.2) K/uL Immature Gran # (Auto) (0.01-0.20) K/uL PT (9.0-12.0) Seconds INR (0.9-1.1) VBG pH (7.36-7.41) VBG pCO2 (38-50) mmHg VBG pO2 mmHg VBG HCO3 mmol/L VBG O2 Saturation % VBG Base Excess mEq/L POC Sodium (135-144) mmol/L Sodium (136-145) mmol/L POC Potassium (3.3-5.0) mmol/L Potassium (3.5-5.1) mmol/L POC Chloride (101-112) mmol/L Chloride (98-107) mmol/L Carbon Dioxide (21-32) mmol/L POC Total CO2 (24-31) mmol/L Anion Gap (3-11) POC Anion Gap (16-25) mmol/L POC BUN (7-18) mg/dl BUN (6-23) mg/dl Creatinine (0.6-1.4) mg/dl POC Creatinine (0.6-1.3) mg/dl Est Cr Clr Drug Dosing ml/min Est GFR ( Amer) ml/min Est GFR (Non-Af Amer) ml/min BUN/Creatinine Ratio (10-20) Glucose (70-99(Fasting)) mg/dl POC Glucose > 600 H* > 600 H* (70-99) mg/dl POC Glucose (other) (70-99) mg/dl Osmolality (280-300) mOsm/kg Lactate (0.4-2.0) mmol/L Calcium (8.6-10.3) mg/dl POC Ioniz Calcium [place] (1.12-1.32) mmol/l Phosphorus (2.5-4.9) mg/dl Magnesium (1.7-2.4) mg/dl Total Bilirubin (0.2-1.0) mg/dl AST (13-39) U/L ALT (7-52) U/L Alkaline Phosphatase (34-104) U/L Total Protein (6.0-8.3) gm/dl Albumin (3.4-5.0) gm/dl Globulin (2.5-4.0) gm/dl Albumin/Globulin Ratio (0.9-2) Lipase (11-82) U/L Procalcitonin (0-0.5) ng/ml TSH (0.300-4.500) uIu/ml Urine Color Urine Appearance (Clear) Urine pH (4.5-7.5) Ur Specific Uriah (1.000-1.030) Urine Protein (Negative) Urine Glucose (UA) (Negative) Urine Ketones (Negative) Urine Blood (Negative) Urine Nitrite (Negative) Urine Bilirubin (Negative) Urine Urobilinogen (Negative) Ur Leukocyte Esterase (Negative) [place] (0.6-1.2) mmol/L SARS-CoV-2, RNA, NAAT NEGATIVE (NEGATIVE) 12/15/22 12/15/22 12/15/22 Range/Units 23:31 23:37 23:40 WBC (4.8-10.8) K/ul RBC (4.70-6.10) M/uL Hgb (14.0-18.0) g/dl POC Hgb (14.0-18.0) g/dl Hct (42.0-52.0) % POC Hct (42-52) % MCV (80.0-100.0) fL MCH (25.0-34.0) pg MCHC (32.0-36.0) g/dL RDW Std Deviation (36.4-46.3) fL RDW Coeff of Jaya (11.5-14.5) % Plt Count (130-400) K/uL MPV (9.4-12.4) fL Immature Gran % (Auto) % Neut % (Auto) % Lymph % (Auto) % [place] % (Auto) % Eos % (Auto) % Baso % (Auto) % Neut # (Auto) (1.40-6.50) K/uL Lymph # (Auto) (1.2-3.4) K/uL Sutter # (Auto) (0.11-0.59) K/uL Eos # (Auto) (0-0.50) K/uL Baso # (Auto) (0-0.2) K/uL Immature Gran # (Auto) (0.01-0.20) K/uL PT (9.0-12.0) Seconds INR (0.9-1.1) VBG pH 7.06 L (7.36-7.41) VBG pCO2 19 L (38-50) mmHg VBG pO2 39 mmHg VBG HCO3 5 mmol/L VBG O2 Saturation 62.3 % VBG Base Excess -23.2 mEq/L POC Sodium (135-144) mmol/L Sodium 130 L (136-145) mmol/L POC Potassium (3.3-5.0) mmol/L Potassium 5.5 H (3.5-5.1) mmol/L POC Chloride (101-112) mmol/L Chloride 92 L (98-107) mmol/L Carbon Dioxide 5 L* (21-32) mmol/L POC Total CO2 (24-31) mmol/L Anion Gap 33 H (3-11) POC Anion Gap (16-25) mmol/L POC BUN (7-18) mg/dl BUN 46 H (6-23) mg/dl Creatinine 1.67 H (0.6-1.4) mg/dl POC Creatinine (0.6-1.3) mg/dl Est Cr Clr Drug Dosing 68.3 ml/min Est GFR ( Amer) 62.3 ml/min Est GFR (Non-Af Amer) 53.7 ml/min BUN/Creatinine Ratio 27.5 H (10-20) Glucose 690 H* (70-99(Fasting)) mg/dl POC Glucose > 600 H* (70-99) mg/dl POC Glucose (other) (70-99) mg/dl Osmolality (280-300) mOsm/kg Lactate (0.4-2.0) mmol/L Calcium 9.4 (8.6-10.3) mg/dl POC Ioniz Calcium Geovanna (1.12-1.32) mmol/l Phosphorus 6.0 H (2.5-4.9) mg/dl Magnesium (1.7-2.4) mg/dl Total Bilirubin (0.2-1.0) mg/dl AST (13-39) U/L ALT (7-52) U/L Alkaline Phosphatase (34-104) U/L Total Protein (6.0-8.3) gm/dl Albumin (3.4-5.0) gm/dl Globulin (2.5-4.0) gm/dl Albumin/Globulin Ratio (0.9-2) Lipase 20 (11-82) U/L Procalcitonin (0-0.5) ng/ml TSH (0.300-4.500) uIu/ml Urine Color Urine Appearance (Clear) Urine pH (4.5-7.5) Ur Specific Uriah (1.000-1.030) Urine Protein (Negative) Urine Glucose (UA) (Negative) Urine Ketones (Negative) Urine Blood (Negative) Urine Nitrite (Negative) Urine Bilirubin (Negative) Urine Urobilinogen (Negative) Ur Leukocyte Esterase (Negative) [place] (0.6-1.2) mmol/L SARS-CoV-2, RNA, NAAT (NEGATIVE) 12/15/22 12/15/22 Range/Units 23:41 23:41 WBC (4.8-10.8) K/ul RBC (4.70-6.10) M/uL Hgb (14.0-18.0) g/dl POC Hgb (14.0-18.0) g/dl Hct (42.0-52.0) % POC Hct (42-52) % MCV (80.0-100.0) fL MCH (25.0-34.0) pg MCHC (32.0-36.0) g/dL RDW Std Deviation (36.4-46.3) fL RDW Coeff of Jaya (11.5-14.5) % Plt Count (130-400) K/uL MPV (9.4-12.4) fL Immature Gran % (Auto) % Neut % (Auto) % Lymph % (Auto) % [place] % (Auto) % Eos % (Auto) % Baso % (Auto) % Neut # (Auto) (1.40-6.50) K/uL Lymph # (Auto) (1.2-3.4) K/uL [place]utter # (Auto) (0.11-0.59) K/uL Eos # (Auto) (0-0.50) K/uL Baso # (Auto) (0-0.2) K/uL Immature Gran # (Auto) (0.01-0.20) K/uL PT (9.0-12.0) Seconds INR (0.9-1.1) VBG pH (7.36-7.41) VBG pCO2 (38-50) mmHg VBG pO2 mmHg VBG HCO3 mmol/L VBG O2 Saturation % VBG Base Excess mEq/L POC Sodium (135-144) mmol/L Sodium (136-145) mmol/L POC Potassium (3.3-5.0) mmol/L Potassium (3.5-5.1) mmol/L POC Chloride (101-112) mmol/L Chloride (98-107) mmol/L Carbon Dioxide (21-32) mmol/L POC Total CO2 (24-31) mmol/L Anion Gap (3-11) POC Anion Gap (16-25) mmol/L POC BUN (7-18) mg/dl BUN (6-23) mg/dl Creatinine (0.6-1.4) mg/dl POC Creatinine (0.6-1.3) mg/dl Est Cr Clr Drug Dosing ml/min Est GFR ( Amer) ml/min Est GFR (Non-Af Amer) ml/min BUN/Creatinine Ratio (10-20) Glucose (70-99(Fasting)) mg/dl POC Glucose (70-99) mg/dl POC Glucose (other) (70-99) mg/dl Osmolality (280-300) mOsm/kg Lactate 3.4 H* (0.4-2.0) mmol/L Calcium (8.6-10.3) mg/dl POC Ioniz Calcium Geovanna (1.12-1.32) mmol/l Phosphorus (2.5-4.9) mg/dl Magnesium (1.7-2.4) mg/dl Total Bilirubin (0.2-1.0) mg/dl AST (13-39) U/L ALT (7-52) U/L Alkaline Phosphatase (34-104) U/L Total Protein (6.0-8.3) gm/dl Albumin (3.4-5.0) gm/dl Globulin (2.5-4.0) gm/dl Albumin/Globulin Ratio (0.9-2) Lipase (11-82) U/L Procalcitonin (0-0.5) ng/ml TSH (0.300-4.500) uIu/ml Urine Color Urine Appearance (Clear) Urine pH (4.5-7.5) Ur Specific Uriah (1.000-1.030) Urine Protein (Negative) Urine Glucose (UA) (Negative) Urine Ketones (Negative) Urine Blood (Negative) Urine Nitrite (Negative) Urine Bilirubin (Negative) Urine Urobilinogen (Negative) Ur Leukocyte Esterase (Negative) [place] < 0.1 L (0.6-1.2) mmol/L SARS-CoV-2, RNA, NAAT (NEGATIVE) Administered Medications Aripiprazole (Aripiprazole 1 Mg/Ml Oral Soln 150 Ml Btl) 2 mg PO DAILY [facility] Stop: 01/15/23 08:59 Last Admin: 12/16/22 08:42 Dose: 2 mg Documented By: [id number] Docusate Sodium (Docusate Sodium 100 Mg Cap) 100 mg PO DAILY [facility] Stop: 01/15/23 08:59 Last Admin: 12/16/22 08:43 Dose: Not Given Documented By: [id number] Famotidine (Famotidine 20 Mg Tab) 20 mg PO DAILY [facility] Stop: 01/15/23 08:59 Last Admin: 12/16/22 08:43 Dose: 20 mg Documented By: [id number] Gabapentin (Gabapentin 300 Mg Cap) 300 mg PO TID [facility] Stop: 01/15/23 13:59 Last Admin: 12/16/22 14:43 Dose: 300 mg Documented By: [email or web address] Heparin Sodium (Porcine) (Heparin Sod 5,000 Unit/0.5 Ml Vial) 5,000 units SQ Q8 [facility] Stop: 01/15/23 05:59 Last Admin: 12/16/22 14:43 Dose: 5,000 units Documented By: Admin: 12/16/22 06:22 Dose: 5,000 units Documented By: TP Insulin Human Regular 250 (units/ Sodium Chloride) 250 mls @ 3.6 mls/hr IV .Q24H [facility]; Protocol Stop: 01/14/23 22:14 Last Titration: 12/16/22 15:16 Dose: 0 units/hr, 0 mls/hr Documented By: SMM Co-signed By: AM Titration: 12/16/22 11:35 Dose: 3.6 units/hr, 3.6 mls/hr Documented By: [id number] Co-signed By: MSD Titration: 12/16/22 10:44 Dose: 3 units/hr, 3 mls/hr Documented By: [id number] Co-signed By: ES Titration: 12/16/22 08:38 Dose: 2.5 units/hr, 2.5 mls/hr Documented By: [id number] Co-signed By: CB Titration: 12/16/22 07:34 Dose: 0 units/hr, 0 mls/hr Documented By: [id number] Co-signed By: CB Titration: 12/16/22 07:27 Dose: 0 units/hr, 0 mls/hr Documented By: [id number] Co-signed By: CB Titration: 12/16/22 07:07 Dose: 4.7 units/hr, 4.7 mls/hr Documented By: [id number] Co-signed By: TP Titration: 12/16/22 06:15 Dose: 4.7 units/hr, 4.7 mls/hr Documented By: TP Co-signed By: ELS Titration: 12/16/22 04:21 Dose: 5.9 units/hr, 5.9 mls/hr Documented By: TP Co-signed By: ELS Titration: 12/16/22 03:15 Dose: 7.4 units/hr, 7.4 mls/hr Documented By: TP Co-signed By: ELS Titration: 12/16/22 02:15 Dose: 9.2 units/hr, 9.2 mls/hr Documented By: TP Co-signed By: ELS Titration: 12/16/22 01:15 Dose: 7.7 units/hr, 7.7 mls/hr Documented By: TP Co-signed By: ELS Titration: 12/16/22 00:40 Dose: 9.6 units/hr, 9.6 mls/hr Documented By: KMB Co-signed By: PATRICE Admin: 12/15/22 22:37 Dose: 8 units/hr, 8 mls/hr Documented By: ANGELLA Co-signed By: [employer] Insulin Aspart (Insulin Aspart Per Unit Charge) 0 units SC ACHS MARITZA Stop: 01/15/23 07:44 Last Admin: 12/16/22 17:43 Dose: 13 units Documented By: BELKIS Co-signed By: AM Admin: 12/16/22 11:39 Dose: 3 units Documented By: [id number] Co-signed By: MSD Admin: 12/16/22 08:37 Dose: Not Given Documented By: [id number] Pantoprazole Sodium (Pantoprazole 40 Mg Tab) 40 mg PO DAILY MARITZA Stop: 01/15/23 08:59 Last Admin: 12/16/22 08:42 Dose: 40 mg Documented By: [id number] Venlafaxine HCl (Venlafaxine Hcl Xr 150 Mg Capxr) 150 mg PO QAM MARITZA Stop: 01/15/23 08:59 Last Admin: 12/16/22 08:43 Dose: 150 mg Documented By: [id number] Discontinued Medications Parenteral Electrolytes (Plasma-Lyte A Ph 7.4) 2,000 mls @ 999 mls/hr IV .Q2H1M ONE Stop: 12/15/22 23:50 Last Infusion: 12/15/22 22:47 Dose: 0 mls/hr Documented By: Admin: 12/15/22 22:02 Dose: 999 mls/hr Documented By: ANGELLA Famotidine (Pepcid 20mg Iv Push) 20 mg in 5 mls @ 2.5 mls/min IV NOW STA Stop: 12/15/22 22:35 Last Admin: 12/15/22 22:40 Dose: 2.5 mls/min Documented By: ANGELLA Parenteral Electrolytes (Plasma-Lyte A Ph 7.4) 1,000 mls @ 999 mls/hr IV .Q1H1M ONE Stop: 12/16/22 00:01 Last Infusion: 12/16/22 00:47 Dose: 0 mls/hr Documented By: Admin: 12/15/22 23:40 Dose: 999 mls/hr Documented By: HENNY Calcium Gluconate () 1,000 mg in 60 mls @ 240 mls/hr IV NOW STA Stop: 12/15/22 23:53 Last Infusion: 12/16/22 00:26 Dose: 0 mls/hr Documented By: Admin: 12/16/22 00:11 Dose: 240 mls/hr Documented By: HENNY Sodium Chloride (Nss 1000ml) 1,000 mls @ 999 mls/hr IV .Q1H1M ONE Stop: 12/16/22 01:30 Last Infusion: 12/16/22 02:28 Dose: 0 mls/hr Documented By: Admin: 12/16/22 01:27 Dose: 999 mls/hr Documented By: TP Sodium Chloride (Nss 1000ml) 1,000 mls @ 500 mls/hr IV .Q2H ONE Stop: 12/16/22 03:29 Last Infusion: 12/16/22 04:25 Dose: 0 mls/hr Documented By: Admin: 12/16/22 02:25 Dose: 500 mls/hr Documented By: TP Sodium Chloride (1/2 Nss) 1,000 mls @ 200 mls/hr IV .Q5H MARITZA Stop: 01/15/23 02:44 Last Infusion: 12/16/22 08:40 Dose: 0 mls/hr Documented By: [id number] Admin: 12/16/22 03:21 Dose: 200 mls/hr Documented By: TP Dextrose/Sodium Chloride (D5w And 1/2nss) 1,000 mls @ 250 mls/hr IV .Q4H MARITZA Stop: 01/15/23 04:44 Last Infusion: 12/16/22 08:40 Dose: 0 mls/hr Documented By: [id number] Admin: 12/16/22 04:56 Dose: 250 mls/hr Documented By: TP Potassium Chloride/Dextrose/Sod Cl (D5w And 1/2nss + 20meq Kcl) 20 meq in 1,000 mls @ 250 mls/hr IV .Q4H MARITZA Stop: 01/15/23 06:14 Last Infusion: 12/16/22 13:52 Dose: 0 mls/hr Documented By: Admin: 12/16/22 11:35 Dose: 250 mls/hr Documented By: [id number] Infusion: 12/16/22 11:27 Dose: 250 mls/hr Documented By: [id number] Admin: 12/16/22 07:27 Dose: 250 mls/hr Documented By: [id number] Insulin Glargine (Lantus Per Unit Charge) 35 units SC NOW ONE Stop: 12/16/22 13:31 Last Admin: 12/16/22 14:07 Dose: 35 units Documented By: BELKIS Co-signed By: AM Insulin Human Regular (Novolin-R Insulin Per Unit Charge) 10 units IV NOW STA Stop: 12/15/22 22:04 Last Admin: 12/15/22 22:18 Dose: 10 units Documented By: TW Co-signed By: [employer] Insulin Human Regular (Novolin-R Bolus From Bag) 8 units IV ONE ONE Stop: 12/15/22 22:16 Last Admin: 12/15/22 22:37 Dose: Not Given Documented By: TW Miscellaneous (Stat Iv Infusion Titration Per Protocol) 1 each N/A NOW STA Stop: 12/15/22 22:04 Last Admin: 12/15/22 22:36 Dose: Not Given Documented By: ANGELLA Miscellaneous (Dka Goal Range 150-250 Mg/Dl) 1 each N/A ONE ONE Stop: 12/15/22 22:04 Last Admin: 12/16/22 01:28 Dose: Not Given Documented By: TP Miscellaneous (Dka Goal Range 150-250 Mg/Dl) 1 each N/A ONE ONE Stop: 12/16/22 10:02 Last Admin: 12/16/22 10:47 Dose: 1 each Documented By: [id number] Miscellaneous Information (Dc Iv Insulin Infusion 1 Ea Frannie) 1 each N/A Q2H [facility] Stop: 01/15/23 14:29 Last Admin: 12/16/22 16:43 Dose: Not Given Documented By: Admin: 12/16/22 15:16 Dose: 1 each Documented By: BELKIS Ondansetron HCl (Ondansetron Inj 2 Mg/Ml 2 Ml Vial) 4 mg IV NOW STA Stop: 12/15/22 22:35 Last Admin: 12/15/22 22:41 Dose: 4 mg Documented By: TW Sodium Bicarbonate (Sodium Bicarb 8.4% Inj 50 Meq/50 Ml Syr) 50 meq IV NOW STA Stop: 12/15/22 23:40 Last Admin: 12/16/22 00:12 Dose: 50 meq Documented By: HENNY Imaging Data Radiologist's Impression: Chest X-Ray 12/15/22 21:51 SINGLE VIEW CHEST CLINICAL HISTORY: Generalized weakness. FINDINGS: 2 AP, portable, upright chest radiographs are obtained. No prior studies are available for comparison at the time of dictation. The cardiom ediastinal silhouette is unremarkable. The lungs and pleural spaces are clear. No pneumothorax is seen. The bony thorax is grossly intact. Cholecystectomy clips are noted in the right upper quadrant. IMPRESSION: No active disease in the chest. ACT 112: Negative or not required by law. Electronically signed by: Hugh Interiano M.D. 12/16/2022 7:24 AM Discharge Plan Visit Data Chief Complaint: Hyperglycemia ED Provider: Vasyl Zheng Discharge Problem: DKA (diabetic ketoacidosis), Type 1 diabetes, Acute hyperkalemia, Nausea & vomiting, Acute dehydration Patient Disposition: Admitted As Inpatient Discharge Instructions Interventions: ED Discharge Assessment Last Done: 12/16/22 00:50
[2022-12-16] MEDS ORDERED: GLUCOSE 40% GEL 15 GM TUBE PO PRN (01:15)
[2022-12-16] MEDS ORDERED: GLUCOSE 10 TAB/TUBE PO PRN (01:15)
[2022-12-16] MEDS ORDERED: GLUCAGON FOR INJ 1 MG VIAL IM PRN (01:15)
[2022-12-16] MEDS ORDERED: DEXTROSE 50% 50 ML SYRINGE IV PRN (01:15)
[2022-12-16] MEDS ORDERED: CARBOHYDRATES FOR HYPOGLYCEMIA PO PRN (01:15)
[2022-12-16] MEDS ORDERED: SODIUM CHLORIDE 0.45 % 1,000 ML IV SCH (02:45)
[2022-12-16 03:58] LABS: Base Excess VBG -11.1 mEq/L; HCO3 VBG 14 mmol/L; Oxygen Saturation VBG 91.5 %; PCO2 VBG 28 mmHg (38-50); PO2 VBG 59 mmHg
[2022-12-16 04:23] LABS: Magnesium 2.4 mg/dl (1.7-2.4); Phosphorus 3.1 mg/dl (2.5-4.9)
--- NOTE | 2022-12-16 04:36 | Critical Care Consultation ---
Date of Consultation December 16, 2022 Assessment & Plan (1) DKA (diabetic ketoacidosis): Impression: 32-year-old type I diabetic presents to the ICU with DKA and severe metabolic acidosis, currently on insulin drip and receiving fluid resuscitation. Neuro - [facility] ICU: Negative Cognitive disorder/schizoaffective disorder/anxiety mood disordercontinue home med regimen Cardiac - Currently normal sinus rhythm on monitor. No history of cardiovascular disease. Continue to monitor on telemetry Respiratory - No history of pulmonary disease. Maintain oxygen saturations on room air. No acute distress. Monitor on pulse ox GI - History of SMA syndrome. Currently NPO. Will advance diet as tolerated RENAL/LYTES - AKIlikely prerenal in setting of DKA. Improving. Continue to monitor routine BMPs and continue with fluid resuscitation. Avoid nephrotoxins and renally adjust medications. - Strict I's and O's ENDO - DKAinitial anion gap of 32 and bicarb of 5, positive ketones in urine and initial blood glucose of 900. - Patient received fluid resuscitation with crystalloid bolus in the ED and is now receiving aggressive fluid resuscitation per DKA protocol along with insulin drip. - Every 4 hours BMPs, every 4 hours VBG's. No indication for bicarb drip at this time - Transition to sliding scale once Anion gap closed and bicarb improved HEME - History of anemiaH&H stable, monitor routine CBC ID - Leukocytosis likely reactionary to DKA. Afebrile. Trend fever curve LINES/IV ACCESS - Peripheral IVs DVT PROPHYLAXIS - SCDs Thank you for allowing us to participate in the care of this patient. Please refer to my attending physician's documentation for any further recommendations. (2) Anxiety disorder: (3) Schizoaffective disorder: (4) Type 1 diabetes: History of Present Illness Attending Physician: Laverne Akhtar MD History of Present Illness Patient is a 32-year-old male with a past medical history of diabetes type 1 (uncontrolled), noncompliance, Schizoaffective disorder/borderline personality disorder/anxiety, mild cognitive disorder who presented to the emergency department earlier this evening with complaints of nausea and fatigue. Patient was noted to have blood glucose of 936 and severe metabolic acidosis. He was given fluid resuscitation with crystalloid bolus and was started on insulin drip. Patient now transferred to the ICU for further management of DKA. On arrival to the ICU the patient is alert and oriented, But is somewhat drowsy. He currently denies any headache, dizziness, syncope, changes in vision, sore throat, congestion, cough, shortness of breath, chest pain or palpitations, abdominal pain, nausea vomiting or diarrhea, swelling in hands or feet, changes in gait. Patient denies any recent illness or fevers. He states that he was without his insulin for the past 2 days. Of note, it is reported the patient has long history of noncompliance with his insulin and multiple admissions at outside hospital for DKA. Patient to remain in ICU for further management at this time. Allergies Allergy/AdvReac Type Severity Reaction Status Date / Time No Known Allergies Allergy Verified 12/15/22 22:06 Home Medications Medication Instructions Recorded Confirmed Type acetaminophen 325 mg tablet 650 mg PO Q4H PRN PAIN/FEVER 12/15/22 12/15/22 History (Tylenol) aripiprazole 2 mg tablet (Abilify) 2 mg PO DAILY 12/15/22 12/15/22 History docusate sodium 100 mg capsule 100 mg PO DAILY 12/15/22 12/15/22 History famotidine 20 mg tablet 20 mg PO DAILY 12/15/22 12/15/22 History gabapentin 300 mg capsule 300 mg PO TID 12/15/22 12/15/22 History insulin aspart U-100 100 unit/mL 10 unit subcut TIDM 12/15/22 12/15/22 History (3 mL) subcutaneous pen (Novolog FlexPen U-100 Insulin aspart) insulin glargine 100 unit/mL (3 100 unit subcut QAM 12/15/22 12/15/22 History mL) subcutaneous pen (Lantus Solostar U-100 Insulin) lithium carbonate 450 mg 450 mg PO HS 12/15/22 12/15/22 History tablet,extended release ondansetron HCl 4 mg tablet 4 mg PO Q8H PRN NAUSEA/VOMITING 12/15/22 12/15/22 History pantoprazole 40 mg tablet,delayed 40 mg PO DAILY 12/15/22 12/15/22 History release trazodone 100 mg tablet 100 mg PO HS PRN Sleep 12/15/22 12/15/22 History venlafaxine 150 mg 150 mg PO QAM 12/15/22 12/15/22 History capsule,extended release 24 hr (Effexor XR) Patient History Medical History (Updated 12/16/22 @ 06:26 by JONATHAN Guzman) Anxiety disorder Schizoaffective disorder Type 1 diabetes Social History Smoking Status: Current every day smoker Second Hand Exposure: Yes; Do You Dip or Chew Tobacco: No; Tobacco Cessation Education Requested by Patient: No Hx Alcohol Use: No Hx Substance Use: No Preferred Language: Ethiopian Communication Ability: Effective Swine Nutritionist Required: No Beliefs That Will Affect Care: None Current Living Situation: Alone Other Information That Helps Us Care for You: No Feels Safe at Home: Yes Safety Concerns: Feels Safe At This Time Assistive Devices: Glasses Review of Systems Review of Systems: All systems reviewed & are unremarkable except as noted in HPI & below Physical Exam Constitutional: WD/WN, vitals as above Eyes: PERRL, conjunctivae normal, anicteric sclerae ENMT: external ear and nose normal, oropharynx normal Neck: trachea midline, no thyromegaly Respiratory: normal respiratory effort, lungs clear to auscultation Cardiovascular: RRR, no murmur, no edema Gastrointestinal (Abdomen): normal bowel sounds, soft, nontender, no hepatosplenomegaly Musculoskeletal: no cyanosis or clubbing, extremities motor strength 5/5 Skin: no rashes, warm and dry Neurologic: PERRL, EOMI, accommodation nl, no face palsy, no dysarthria Psychiatric: A+Ox3, euthymic affect Results & Data Results & Data Vital Signs (Past 12 Hours) Vital Signs Temp Pulse Pulse Resp BP BP Pulse Ox 12/16/22 01:06 36.3 C L 109 H 20 109/58 L 98 12/16/22 00:30 130 H 29 H 127/76 99 12/16/22 00:00 105 H 19 122/62 99 12/15/22 23:30 103 H 19 134/59 L 99 12/15/22 23:00 103 H 25 H 132/57 L 100 12/15/22 22:09 116 H 24 147/66 H 97 12/15/22 22:09 98 12/15/22 21:33 113 H 12/15/22 21:32 37 C 108 H 24 147/66 H 96 O2 Del Method 12/16/22 01:06 Room Air 12/16/22 00:30 Room Air 12/16/22 00:00 Room Air 12/15/22 23:30 Room Air 12/15/22 23:00 Room Air 12/15/22 22:09 Room Air 12/15/22 22:09 Room Air 12/15/22 21:33 12/15/22 21:32 Room Air Coding Level of Care Code 91879 IN/OBS CONSULT LVL 3,45M Diagnoses DKA (diabetic ketoacidosis) E11.10 Anxiety disorder F41.9 Schizoaffective disorder F25.9 Type 1 diabetes E10.9 Time Spent (min) 50
[2022-12-16 04:45] LABS: Basophils # (auto) 0.07 K/uL (0-0.2); Basophils % (auto) 0.3 %; Hemoglobin 13.1 g/dl (14.0-18.0); Immature Granulocytes # (auto) 0.21 K/uL (0.01-0.20); Immature Granulocytes % (auto) 0.9 %; Lymphocytes # (auto) 3.41 K/uL (1.2-3.4); Lymphocytes % (auto) 15.4 %; Mean Corpuscular Hemoglobin 30.6 pg (25.0-34.0); Mean Corpuscular Hgb Conc 36.4 g/dL (32.0-36.0); Mean Platelet Volume 10.2 fL (9.4-12.4); Monocytes # (auto) 1.21 K/uL (0.11-0.59); Monocytes % (auto) 5.5 %; Neutrophils # (auto) 17.24 K/uL (1.40-6.50); Neutrophils % (auto) 77.9 %; Platelet Count 243 K/uL (130-400); RDW Coefficient of Variation 11.9 % (11.5-14.5); RDW Standard Deviation 36.1 fL (36.4-46.3); Red Blood Count 4.28 M/uL (4.70-6.10); White Blood Count 22.14 K/ul (4.8-10.8)
[2022-12-16] MEDS ORDERED: D5W AND 1/2NSS 1,000 ML IV SCH (04:45)
[2022-12-16 06:05] LABS: BUN Creatinine Ratio 27.1 (10-20); Blood Urea Nitrogen 38 mg/dl (6-23); Calcium 9.2 mg/dl (8.6-10.3); Chloride 102 mmol/L (98-107); Creatinine Clr Calc Pharmacy 81.4 ml/min; Est GFR (Non-African American) 66.5 ml/min; Glucose 292 mg/dl (70-99(Fasting)); Potassium 4.5 mmol/L (3.5-5.1); Sodium 136 mmol/L (136-145)
[2022-12-16] MEDS: HEPARIN SOD 5,000 UNIT/0.5 ML VIAL SQ SCH ×3 (06:22→21:32)
[2022-12-16] MEDS ORDERED: traZODone HCL 100 MG TAB PO PRN (06:32)
--- NOTE | 2022-12-16 07:26 | XRay Report ---
SINGLE VIEW CHEST CLINICAL HISTORY: Generalized weakness. FINDINGS: 2 AP, portable, upright chest radiographs are obtained. No prior studies are available for comparison at the time of dictation. The cardiomediastinal silhouette is unremarkable. The lungs and pleural spaces are clear. No pneumothorax is seen. The bony thorax is grossly intact. Cholecystectomy clips are noted in the right upper quadrant. IMPRESSION: No active disease in the chest. ACT 112: Negative or not required by law. Electronically signed by: Hugh Interiano M.D. 12/16/2022 7:24 AM
[2022-12-16] MEDS: D5W AND 1/2NSS + 20MEQ KCL 20 MEQ/1,000 ML BAG IV SCH ×2 (07:27→11:35)
[2022-12-16] MEDS ORDERED: INSULIN ASPART PER UNIT CHARGE SC SCH (07:30)
[2022-12-16 08:15] LABS: Estimated Average Glucose 344 mg/dl; Hemoglobin A1C 13.6 % (4.5-5.6)
[2022-12-16] MEDS: INSULIN ASPART PER UNIT CHARGE SC SCH ×4 (08:37→21:32)
[2022-12-16] MEDS: ARIPIprazole 1 MG/ML ORAL SOLN 150 ML BTL PO SCH (08:42)
[2022-12-16] MEDS: PANTOprazole 40 MG TAB PO SCH (08:42)
[2022-12-16] MEDS: VENLAFAXINE HCL XR 150 MG CAPXR PO SCH (08:43)
[2022-12-16] MEDS: FAMOTIDINE 20 MG TAB PO SCH (08:43)
[2022-12-16] MEDS: DOCUSATE SODIUM 100 MG CAP PO SCH (08:43)
[2022-12-16 09:14] LABS: Base Excess VBG -9.7 mEq/L; HCO3 VBG 17 mmol/L; Oxygen Saturation VBG < 60.0 %; PCO2 VBG 40 mmHg (38-50); PO2 VBG 24 mmHg; pH VBG 7.24 (7.36-7.41)
[2022-12-16 09:36] LABS: BUN Creatinine Ratio 28.3 (10-20); Calcium 8.7 mg/dl (8.6-10.3); Creatinine Clr Calc Pharmacy 100.9 ml/min; Est GFR (African American) 99.8 ml/min; Est GFR (Non-African American) 86.1 ml/min; Potassium 4.6 mmol/L (3.5-5.1)
[2022-12-16] MEDS ORDERED: DKA GOAL RANGE 150-250 mg/dl ONE (10:01)
--- NOTE | 2022-12-16 10:30 | Pharmacy Report ---
Pharmacy Glycemic Short Note 2 - Date of Service December 16, 2022 - Glycemic Short BSG Results (Last 24 hours): 12/15/22 12/15/22 12/15/22 21:30 22:01 22:45 Glucose 964 H* POC Glucose > 600 H* POC Glucose (other) > 700 H* 12/15/22 12/15/22 12/15/22 23:24 23:31 23:37 Glucose 690 H* POC Glucose > 600 H* > 600 H* POC Glucose (other) 12/16/22 12/16/22 12/16/22 01:13 02:16 03:11 Glucose POC Glucose 452 H* 392 H* 313 H* POC Glucose (other) 12/16/22 12/16/22 12/16/22 03:42 04:13 05:18 Glucose 292 H POC Glucose 250 H 263 H POC Glucose (other) 12/16/22 12/16/22 12/16/22 06:12 07:20 07:32 Glucose POC Glucose 202 H 146 H 133 H POC Glucose (other) 12/16/22 12/16/22 12/16/22 07:49 08:04 08:18 Glucose POC Glucose 144 H 160 H 173 H POC Glucose (other) 12/16/22 12/16/22 12/16/22 08:34 08:57 09:28 Glucose 245 H POC Glucose 204 H 250 H POC Glucose (other) OUTPATIENT ANTIDIABETIC REGIMEN: * Lantus 100 units SQ qAM (per patient) * Novolog 10 units TIDM HbA1C: 13.6% ASSESSMENT: * Patient is a type 1 diabetic admitted in DKA. Missed a couple of days of insulin at home - non-compliant. Initial labs: pH-7.06, AG-35, bicarb-5, BSG- 964mg/dL . Insulin infusion per DKA protocol initiated. Pharmacy consulted to assist with glycemic management. * Insulin infusion initiated last night ~2300 and ran overnight until held this AM for BSG 133mg/dL. Labs this AM: pH-7.24, AG-18, bicarb-17. Infusion rate decreased to 2.5 unit/hr. Goal range adjusted to 150-250mg/dL. Patient is still tired and not taking PO. Plan to transition to SQ pending lunch labs (will transition once AG closed, bicarb >15, and pH>7.3 and pt tolerating PO). * IVF- D51/2NS w/ 20mEQ KCl @ 250mL/hr. K-4.6mmol/L this AM. PLAN FOR INPATIENT GLYCEMIC CONTROL: * Hold outpatient oral diabetes medications * Basal insulin * insulin drip per DKA protocol * Transition plan: Lantus 35 units SQ X 1 (based upon 24h avg drip rate). Overlap with drip X 2 hours unless held. D/c dextrose-containing IVF. * Bolus insulin * NovoLog per scale ACHS or Q6hrs while NPO * Goal Range: Low 110 mg/dL - High 140 mg/dL * Correction Factor: 20mg/dL/unit (once drip discontinued) * Nutritional / Prandial insulin per carb ratio of 1 unit per 7 grams CHO consumed
[2022-12-16 12:47] LABS: Base Excess VBG -4.1 mEq/L; HCO3 VBG 22 mmol/L; Oxygen Saturation VBG 71.9 %; PCO2 VBG 41 mmHg (38-50); PO2 VBG 36 mmHg; pH VBG 7.33 (7.36-7.41)
[2022-12-16 13:14] LABS: BUN Creatinine Ratio 23.5 (10-20); Calcium 8.8 mg/dl (8.6-10.3); Creatinine Clr Calc Pharmacy 99.1 ml/min; Est GFR (African American) 97.7 ml/min; Est GFR (Non-African American) 84.3 ml/min; Potassium 4.5 mmol/L (3.5-5.1)
[2022-12-16] MEDS ORDERED: LANTUS PER UNIT CHARGE SC ONE (13:30)
[2022-12-16] MEDS: GABAPENTIN 300 MG CAP PO SCH ×2 (14:43→21:31)
--- NOTE | 2022-12-16 14:54 | Hospitalist Progress Note ---
Date of Service December 16, 2022 Assessment & Plan (1) Hyperglycemic crisis in diabetes mellitus: Plan: HHS/DKA combo hx DM1, suboptimal control as of recent hemoglobin A1c of 13.3 last September 2022 Secondary to medication noncompliance, mild cognitive impairment Admitted in ICU IVF, IV insulin Pharmacy glycemic control consultation as ordered by ER provider Update hemoglobin [id number] highly elevated at 13.6 as of 12/16/2022 Tolerated intravenous insulin and now back on subcu insulin Received IV fluid which has been discontinued Has been taking orally Check blood sugar and on sliding scale insulin Hyperkalemia, ARF, AGMA secondary to illness No evidence of any infection Elevated white count's due to DKA Received adequate amount of intravenous fluid and electrolyte replacement Electrolytes and creatinine have been normalized Episodic encephalopathy secondary to illness Resolved Hypertension, stable, patient not on maintenance medications Blood pressure is maintained Hyperlipidemia as per records History of schizoaffective disorder/borderline personality disorder/anxiety/mood disorder, stable as per patient No acute confusion Chronic anemia, hemoglobin better than baseline likely secondary to hemoconcentration Hemoglobin normal at 13.1 with RBC count low at 4.28 ongoing vape use Resume home neuropsychotropic meds once patient more awake. Nicotine patch as needed PT OT once medically stable DVT prophylaxis Heparin subcu Full code Admission and Anticipated Discharge Date Admission Date: December 16, 2022 Subjective 12/16/2022 The patient was seen and examined in ICU He has been feeling much better and denies any significant symptoms He missed 2 doses of his insulin prior to admission with DKA Denies any infective symptoms and has been tolerating diet Will be transferred to telemetry unit for continuation of care Review of Systems Review of Systems: All systems reviewed and are unremarkable except as noted below Physical Exam Physical Exam: Lying in bed comfortably Constitutional: well developed and well nourished; not ill appearing Eyes: PERRL, conjunctivae normal, anicteric sclerae ENMT: external ear and nose normal, oropharynx normal Neck: trachea midline, no thyromegaly Respiratory: no respiratory distress Auscultation: lungs clear to auscultation bilaterally Cardiovascular: Rate/Rhythm: regular rate and regular rhythm; not tachycardic Heart Sounds: normal S1 and normal S2; no murmur Extremities: no edema Gastrointestinal (Abdomen): Inspection/Auscultation: normal bowel sounds; abdomen not distended Percussion/Palpation: abdomen soft; abdomen nontender Musculoskeletal: No acute arthritis involving any joint Neurologic: normal touch/pain/proprioception and moves all extremities; no focal motor deficits Psychiatric: A+Ox3, euthymic affect Lymphatic: no cervical or axillary lymphadenopathy Results & Data Results & Data Vital Signs (Past 12 Hours) Vital Signs Pulse Resp BP Pulse Ox O2 Del Method 12/16/22 11:00 87 12 99 12/16/22 11:00 116/63 12/16/22 10:30 84 12 98 12/16/22 10:30 112/63 12/16/22 10:00 85 14 100 12/16/22 10:00 125/68 12/16/22 09:30 101/67 12/16/22 09:30 87 15 99 12/16/22 09:00 87 17 100 Room Air 12/16/22 09:00 133/68 12/16/22 08:30 110 H 13 99 12/16/22 08:30 138/65 12/16/22 08:00 92 H 15 98 12/16/22 08:00 122/63 12/16/22 07:30 129/70 12/16/22 07:30 96 H 100 12/16/22 07:00 98 H 14 100 12/16/22 07:00 112/59 L 12/16/22 06:30 109/57 L 12/16/22 06:30 96 H 97 12/16/22 06:00 99 H 17 99 12/16/22 06:00 120/64 12/16/22 05:30 103 H 15 12/16/22 05:30 123/65 12/16/22 05:00 96 H 17 99 12/16/22 05:00 130/69 12/16/22 04:30 101 H 15 12/16/22 04:30 130/63 12/16/22 04:00 101 H 16 12/16/22 04:00 131/65 12/16/22 03:30 106 H 14 12/16/22 03:30 133/65 12/16/22 03:00 104 H 16 12/16/22 03:00 129/62 Laboratory Results Short CBC 12/15/22 12/16/22 Range/Units 21:30 03:42 WBC 19.57 H 22.14 H (4.8-10.8) K/ul Hgb 14.0 13.1 L (14.0-18.0) g/dl Hct 42.3 36.0 L (42.0-52.0) % Plt Count 260 243 (130-400) K/uL BMP 12/15/22 12/15/22 12/16/22 21:30 23:37 03:42 Sodium 124 L 130 L 136 Potassium 6.6 H* 5.5 H 4.5 Chloride 83 L 92 L 102 Carbon Dioxide 6 L* 5 L* TNP BUN 48 H 46 H 38 H Creatinine 1.78 H 1.67 H 1.40 Glucose 964 H* 690 H* 292 H Calcium 10.2 9.4 9.2 12/16/22 12/16/22 08:57 12:24 Sodium 136 134 L Potassium 4.6 4.5 Chloride 101 103 Carbon Dioxide 17 L 21 BUN 32 H 27 H Creatinine 1.13 1.15 Glucose 245 H 260 H Calcium 8.7 8.8 Liver Function 12/15/22 Range/Units 21:30 Total Bilirubin 0.6 (0.2-1.0) mg/dl AST 27 (13-39) U/L ALT 32 (7-52) U/L Alkaline Phosphatase 154 H (34-104) U/L Albumin 4.4 (3.4-5.0) gm/dl Urine 12/15/22 Range/Units 22:05 Urine Color Yellow Urine Appearance Clear (Clear) Urine pH 5.0 (4.5-7.5) Ur Specific [place] 1.026 (1.000-1.030) Urine Protein Negative (Negative) Urine Glucose (UA) 3+ H (Negative) Medications Administered Current Inpatient Medications Acetaminophen (Acetaminophen 325 Mg Tab) 650 mg PO Q4H PRN PRN Reason: Pain or Fever Stop: 01/15/23 01:05 Aripiprazole (Aripiprazole 1 Mg/Ml Oral Soln 150 Ml Btl) 2 mg PO DAILY MARITZA Stop: 01/15/23 08:59 Last Admin: 12/16/22 08:42 Dose: 2 mg Dextrose (Dextrose 50% 50 Ml Syringe) 25 - 50 ml IV UD PRN; Protocol PRN Reason: Hypoglycemia Protocol Stop: 01/15/23 01:14 Docusate Sodium (Docusate Sodium 100 Mg Cap) 100 mg PO DAILY MARITZA Stop: 01/15/23 08:59 Last Admin: 12/16/22 08:43 Dose: Not Given Famotidine (Famotidine 20 Mg Tab) 20 mg PO DAILY MARITZA Stop: 01/15/23 08:59 Last Admin: 12/16/22 08:43 Dose: 20 mg Gabapentin (Gabapentin 300 Mg Cap) 300 mg PO TID MARITZA Stop: 01/15/23 13:59 Last Admin: 12/16/22 14:43 Dose: 300 mg Glucagon (Glucagon For Inj 1 Mg Vial) 1 mg IM UD PRN; Protocol PRN Reason: Hypoglycemia Protocol Stop: 01/15/23 01:14 Glucose (Glucose 40% Gel 15 Gm Tube) 15 - 30 gm PO UD PRN; Protocol PRN Reason: Hypoglycemia Protocol Stop: 01/15/23 01:14 Glucose (Glucose 10 Tab/Tube) 4 - 8 tab PO UD PRN; Protocol PRN Reason: Hypoglycemia Protocol Stop: 01/15/23 01:14 Heparin Sodium (Porcine) (Heparin Sod 5,000 Unit/0.5 Ml Vial) 5,000 units SQ Q8 [facility] Stop: 01/15/23 05:59 Last Admin: 12/16/22 14:43 Dose: 5,000 units Insulin Human Regular 250 (units/ Sodium Chloride) 250 mls @ 3.6 mls/hr IV .Q24H MARITZA; Protocol Stop: 01/14/23 22:14 Last Titration: 12/16/22 11:35 Dose: 3.6 units/hr, 3.6 mls/hr Insulin Aspart (Insulin Aspart Per Unit Charge) 0 units SC ACHS [facility] Stop: 01/15/23 07:44 Last Admin: 12/16/22 11:39 Dose: 3 units Insulin Aspart (Insulin Aspart Per Unit Charge) 0 units SC 0000,[id number] [facility] Stop: 12/17/22 04:01 [place] Carbonate ([place]rick Carbonate 450 Mg Tabcr) 450 mg PO HS [facility] Stop: 01/15/23 20:59 Miscellaneous (Carbohydrates For Hypoglycemia ) 15 - 30 gm PO UD PRN PRN Reason: Hypoglycemia Treatment Stop: 01/15/23 01:14 Miscellaneous Information (Pharmacy Glycemic Mgmt Consult) 1 each N/A UD PRN PRN Reason: Consult Stop: 01/14/23 22:02 Miscellaneous Information (Dc Iv Insulin Infusion 1 Ea Frannie) 1 each N/A Q2H [facility] Stop: 01/15/23 14:29 Pantoprazole Sodium (Pantoprazole 40 Mg Tab) 40 mg PO DAILY [facility] Stop: 01/15/23 08:59 Last Admin: 12/16/22 08:42 Dose: 40 mg Trazodone HCl (Trazodone Hcl 100 Mg Tab) 100 mg PO HS PRN PRN Reason: Sleep Stop: 01/15/23 06:31 Venlafaxine HCl (Venlafaxine Hcl Xr 150 Mg Capxr) 150 mg PO QAM [facility] Stop: 01/15/23 08:59 Last Admin: 12/16/22 08:43 Dose: 150 mg
[2022-12-16] MEDS: DC IV INSULIN INFUSION 1 EA DEVI SCH ×2 (15:16→16:43)
[2022-12-16 16:20] LABS: Base Excess VBG -3.9 mEq/L; HCO3 VBG 21 mmol/L; Oxygen Saturation VBG 95.2 %; PCO2 VBG 36 mmHg (38-50); PO2 VBG 64 mmHg; pH VBG 7.37 (7.36-7.41)
[2022-12-16 16:44] LABS: BUN Creatinine Ratio 24.7 (10-20); Calcium 8.4 mg/dl (8.6-10.3); Creatinine Clr Calc Pharmacy 117.5 ml/min; Est GFR (African American) 120.1 ml/min; Est GFR (Non-African American) 103.6 ml/min; Potassium 4.3 mmol/L (3.5-5.1)
[2022-12-16 20:53] LABS: HCO3 VBG 25 mmol/L; PCO2 VBG 38 mmHg (38-50); PO2 VBG 74 mmHg; pH VBG 7.43 (7.36-7.41)
[2022-12-16 21:15] LABS: Creatinine Clr Calc Pharmacy 129.5 ml/min; Est GFR (African American) 132.7 ml/min; Est GFR (Non-African American) 114.5 ml/min
[2022-12-16] MEDS: LITHIUM CARBONATE 450 MG TABCR PO SCH (21:32)
[2022-12-16 21:53] LABS: Calcium 8.5 mg/dl (8.6-10.3); Potassium 3.6 mmol/L (3.5-5.1)
[2022-12-16] MEDS ORDERED: ONDANSETRON INJ 2 MG/ML 2 ML VIAL IV STA (22:34)
[2022-12-17] MEDS: INSULIN ASPART PER UNIT CHARGE SC SCH ×6 (00:09→20:43)
[2022-12-17] MEDS ORDERED: ONDANSETRON INJ 2 MG/ML 2 ML VIAL IV PRN (05:20)
[2022-12-17] MEDS: HEPARIN SOD 5,000 UNIT/0.5 ML VIAL SQ SCH ×3 (05:39→23:04)
[2022-12-17 06:45] LABS: Basophils # (auto) 0.02 K/uL (0-0.2); Basophils % (auto) 0.3 %; Eosinophils % (auto) 1.3 %; Hematocrit (blood only) 34.8 % (42.0-52.0); Hemoglobin 12.6 g/dl (14.0-18.0); Immature Granulocytes # (auto) 0.03 K/uL (0.01-0.20); Immature Granulocytes % (auto) 0.4 %; Lymphocytes # (auto) 1.94 K/uL (1.2-3.4); Lymphocytes % (auto) 24.8 %; Mean Corpuscular Hemoglobin 30.8 pg (25.0-34.0); Mean Corpuscular Hgb Conc 36.2 g/dL (32.0-36.0); Mean Corpuscular Volume 85.1 fL (80.0-100.0); Mean Platelet Volume 9.9 fL (9.4-12.4); Monocytes # (auto) 0.31 K/uL (0.11-0.59); Neutrophils # (auto) 5.43 K/uL (1.40-6.50); Neutrophils % (auto) 69.2 %; Platelet Count 170 K/uL (130-400); RDW Coefficient of Variation 12.2 % (11.5-14.5); RDW Standard Deviation 37.7 fL (36.4-46.3); Red Blood Count 4.09 M/uL (4.70-6.10); White Blood Count 7.83 K/ul (4.8-10.8)
[2022-12-17] MEDS: PANTOprazole 40 MG TAB PO SCH (07:27)
[2022-12-17] MEDS: FAMOTIDINE 20 MG TAB PO SCH (07:27)
[2022-12-17] MEDS: DOCUSATE SODIUM 100 MG CAP PO SCH (07:27)
[2022-12-17] MEDS: GABAPENTIN 300 MG CAP PO SCH ×3 (07:28→20:36)
[2022-12-17] MEDS: VENLAFAXINE HCL XR 150 MG CAPXR PO SCH (07:28)
[2022-12-17] MEDS: ARIPIprazole 1 MG/ML ORAL SOLN 150 ML BTL PO SCH (07:29)
[2022-12-17 08:04] LABS: Albumin Level 3.6 gm/dl (3.4-5.0); Bilirubin,Total 0.5 mg/dl (0.2-1.0); Calcium 8.6 mg/dl (8.6-10.3); Magnesium 1.5 mg/dl (1.7-2.4); Potassium 3.9 mmol/L (3.5-5.1)
[2022-12-17 08:10] LABS: BUN Creatinine Ratio 23.4 (10-20); Est GFR (African American) 140.1 ml/min; Est GFR (Non-African American) 120.9 ml/min
[2022-12-17 08:11] LABS: Albumin Globulin Ratio 1.7 (0.9-2); Globulin 2.1 gm/dl (2.5-4.0); Phosphorus 1.7 mg/dl (2.5-4.9); Total Protein 5.7 gm/dl (6.0-8.3)
[2022-12-17] MEDS ORDERED: POTASSIUM PHOS 3 MMOL/1 ML INFUSION IV STA (09:00)
[2022-12-17] MEDS: MAGNESIUM SULFATE / D5W 1 GM/100 ML BAG IV SCH ×2 (09:13→10:53)
[2022-12-17] MEDS ORDERED: POTASSIUM PHOSPHATE 24 MMOL in SODIUM CHLORIDE 0.9% 500 ML IV ONE (09:30)
[2022-12-17] MEDS ORDERED: LANTUS PER UNIT CHARGE SC ONE (11:00)
--- NOTE | 2022-12-17 15:47 | Hospitalist Progress Note ---
Date of Service December 17, 2022 Assessment & Plan (1) Hyperglycemic crisis in diabetes mellitus: Plan: HHS/DKA combo hx DM1, suboptimal control as of recent hemoglobin A1c of 13.3 last September 2022 Secondary to medication noncompliance, mild cognitive impairment Admitted in ICU IVF, IV insulin Pharmacy glycemic control consultation as ordered by ER provider Update hemoglobin [id number] highly elevated at 13.6 as of 12/16/2022 Tolerated intravenous insulin and now back on subcu insulin Received IV fluid which has been discontinued Has been taking orally Check blood sugar and on sliding scale insulin Has been taking regular diet without any significant symptoms except weakness Blood sugar is stable and has been back on subcu insulin Likely discharge tomorrow Hyperkalemia, ARF, AGMA secondary to illness No evidence of any infection Elevated white count's due to DKA Received adequate amount of intravenous fluid and electrolyte replacement Electrolytes and creatinine have been normalized Electrolytes have been replaced and will recheck it tomorrow Kidney function has been getting better Episodic encephalopathy secondary to illness Resolved Hypertension, stable, patient not on maintenance medications Blood pressure is maintained Hyperlipidemia as per records History of schizoaffective disorder/borderline personality disorder/anxiety/mood disorder, stable as per patient No acute confusion Chronic anemia, hemoglobin better than baseline likely secondary to hemoconcentration Hemoglobin normal at 13.1 with RBC count low at 4.28 ongoing vape use Resume home neuropsychotropic meds once patient more awake. Nicotine patch as needed PT OT once medically stable DVT prophylaxis Heparin subcu Full code He does not have any ride today and needs to have electrolytes corrected prior to discharge Likely discharge tomorrow Admission and Anticipated Discharge Date Admission Date: December 16, 2022 Subjective 12/16/2022 The patient was seen and examined in ICU He has been feeling much better and denies any significant symptoms He missed 2 doses of his insulin prior to admission with DKA Denies any infective symptoms and has been tolerating diet Will be transferred to telemetry unit for continuation of care 12/17/2022 The patient was seen and examined in telemetry unit He has been feeling much better and has been tolerating regular diet Blood blood sugar seems to be controlled but electrolytes remains abnormal Remains generally weak Review of Systems Review of Systems: All systems reviewed and are unremarkable except as noted below Physical Exam Physical Exam: Lying in bed comfortably Constitutional: well developed and well nourished; not ill appearing Eyes: PERRL, conjunctivae normal, anicteric sclerae ENMT: external ear and nose normal, oropharynx normal Neck: trachea midline, no thyromegaly Respiratory: no respiratory distress Auscultation: lungs clear to auscultation bilaterally Cardiovascular: Rate/Rhythm: regular rate and regular rhythm; not tachycardic Heart Sounds: normal S1 and normal S2; no murmur Extremities: no edema Gastrointestinal (Abdomen): Inspection/Auscultation: normal bowel sounds; abdomen not distended Percussion/Palpation: abdomen soft; abdomen nontender Neurologic: normal touch/pain/proprioception and moves all extremities; no focal motor deficits Psychiatric: A+Ox3, euthymic affect Lymphatic: no cervical or axillary lymphadenopathy Results & Data Results & Data Vital Signs (Past 12 Hours) Vital Signs Temp Pulse Resp BP Pulse Ox O2 Del Method 12/17/22 15:23 36.7 C 79 20 128/80 97 12/17/22 15:00 91 H 12/17/22 11:16 36.7 C 74 20 124/72 95 12/17/22 07:30 Room Air 12/17/22 07:23 36.6 C 81 20 136/77 96 12/17/22 07:00 78 Laboratory Results Short CBC 12/17/22 Range/Units 06:15 WBC 7.83 (4.8-10.8) K/ul Hgb 12.6 L (14.0-18.0) g/dl Hct 34.8 L (42.0-52.0) % Plt Count 170 (130-400) K/uL BMP 12/16/22 12/16/22 12/17/22 16:12 20:34 06:15 Sodium 134 L 133 L 136 Potassium 4.3 3.6 3.9 Chloride 104 104 105 Carbon Dioxide 21 22 23 BUN 24 H 22 18 Creatinine 0.97 0.88 0.77 Glucose 151 H 77 156 H Calcium 8.4 L 8.5 L 8.6 Liver Function 12/17/22 Range/Units 06:15 Total Bilirubin 0.5 (0.2-1.0) mg/dl AST 14 (13-39) U/L ALT 18 (7-52) U/L Alkaline Phosphatase 57 (34-104) U/L Albumin 3.6 (3.4-5.0) gm/dl Medications Administered Current Inpatient Medications Acetaminophen (Acetaminophen 325 Mg Tab) 650 mg PO Q4H PRN PRN Reason: Pain or Fever Stop: 01/15/23 01:05 Last Admin: 12/17/22 06:40 Dose: 650 mg Aripiprazole (Aripiprazole 1 Mg/Ml Oral Soln 150 Ml Btl) 2 mg PO DAILY [facility] Stop: 01/15/23 08:59 Last Admin: 12/17/22 07:29 Dose: 2 mg Dextrose (Dextrose 50% 50 Ml Syringe) 25 - 50 ml IV UD PRN; Protocol PRN Reason: Hypoglycemia Protocol Stop: 01/15/23 01:14 Docusate Sodium (Docusate Sodium 100 Mg Cap) 100 mg PO DAILY [facility] Stop: 01/15/23 08:59 Last Admin: 12/17/22 07:27 Dose: 100 mg Famotidine (Famotidine 20 Mg Tab) 20 mg PO DAILY [facility] Stop: 01/15/23 08:59 Last Admin: 12/17/22 07:27 Dose: 20 mg Gabapentin (Gabapentin 300 Mg Cap) 300 mg PO TID [facility] Stop: 01/15/23 13:59 Last Admin: 12/17/22 13:36 Dose: 300 mg Glucagon (Glucagon For Inj 1 Mg Vial) 1 mg IM UD PRN; Protocol PRN Reason: Hypoglycemia Protocol Stop: 01/15/23 01:14 Glucose (Glucose 40% Gel 15 Gm Tube) 15 - 30 gm PO UD PRN; Protocol PRN Reason: Hypoglycemia Protocol Stop: 01/15/23 01:14 Glucose (Glucose 10 Tab/Tube) 4 - 8 tab PO UD PRN; Protocol PRN Reason: Hypoglycemia Protocol Stop: 01/15/23 01:14 Heparin Sodium (Porcine) (Heparin Sod 5,000 Unit/0.5 Ml Vial) 5,000 units SQ Q8 [facility] Stop: 01/15/23 05:59 Last Admin: 12/17/22 13:36 Dose: Not Given Insulin Human Regular 250 (units/ Sodium Chloride) 250 mls @ 3.6 mls/hr IV .Q24H [facility]; Protocol Stop: 01/14/23 22:14 Last Titration: 12/16/22 15:16 Dose: Infused Insulin Aspart (Insulin Aspart Per Unit Charge) 0 units SC ACHS [facility] Stop: 01/15/23 07:44 Last Admin: 12/17/22 11:34 Dose: 13 units Insulin Glargine (Lantus Per Unit Charge) 35 units SC DAILY [facility] Stop: 01/17/23 08:59 [place] Carbonate ([place]onds Carbonate 450 Mg Tabcr) 450 mg PO HS [facility] Stop: 01/15/23 20:59 Last Admin: 12/16/22 21:32 Dose: 450 mg Miscellaneous (Carbohydrates For Hypoglycemia ) 15 - 30 gm PO UD PRN PRN Reason: Hypoglycemia Treatment Stop: 01/15/23 01:14 Miscellaneous Information (Pharmacy Glycemic Mgmt Consult) 1 each N/A UD PRN PRN Reason: Consult Stop: 01/14/23 22:02 Ondansetron HCl (Ondansetron Inj 2 Mg/Ml 2 Ml Vial) 4 mg IV Q6H PRN PRN Reason: Nausea And Vomiting Stop: 01/16/23 05:19 Last Admin: 12/17/22 05:38 Dose: 4 mg Pantoprazole Sodium (Pantoprazole 40 Mg Tab) 40 mg PO DAILY [facility] Stop: 01/15/23 08:59 Last Admin: 12/17/22 07:27 Dose: 40 mg Trazodone HCl (Trazodone Hcl 100 Mg Tab) 100 mg PO HS PRN PRN Reason: Sleep Stop: 01/15/23 06:31 Venlafaxine HCl (Venlafaxine Hcl Xr 150 Mg Capxr) 150 mg PO QAM [facility] Stop: 01/15/23 08:59 Last Admin: 12/17/22 07:28 Dose: 150 mg
[2022-12-17] MEDS: LITHIUM CARBONATE 450 MG TABCR PO SCH (20:36)
--- NOTE | 2022-12-18 05:11 | Electrocardiogram Report ---
Test Reason : Blood Pressure : / mmHG Vent. Rate : 106 BPM Atrial Rate : 106 BPM P-R Int : 142 ms QRS Dur : 088 ms QT Int : 322 ms P-R-T Axes : 069 079 057 degrees QTc Int : 427 ms Sinus tachycardia Otherwise normal ECG No previous ECGs available Confirmed by Bk Graves ([id number]) on 12/18/2022 5:11:47 AM Referred By: REFERRED SELF Confirmed By:Bk Graves
[2022-12-18] MEDS: HEPARIN SOD 5,000 UNIT/0.5 ML VIAL SQ SCH (06:20)
[2022-12-18 07:41] LABS: Basophils # (auto) 0.02 K/uL (0-0.2); Basophils % (auto) 0.5 %; Eosinophils # (auto) 0.07 K/uL (0-0.50); Eosinophils % (auto) 1.6 %; Hemoglobin 12.5 g/dl (14.0-18.0); Immature Granulocytes # (auto) 0.01 K/uL (0.01-0.20); Immature Granulocytes % (auto) 0.2 %; Lymphocytes # (auto) 1.52 K/uL (1.2-3.4); Lymphocytes % (auto) 34.4 %; Mean Corpuscular Hemoglobin 30.1 pg (25.0-34.0); Mean Corpuscular Hgb Conc 34.7 g/dL (32.0-36.0); Mean Corpuscular Volume 86.7 fL (80.0-100.0); Mean Platelet Volume 10.2 fL (9.4-12.4); Monocytes # (auto) 0.31 K/uL (0.11-0.59); Neutrophils # (auto) 2.49 K/uL (1.40-6.50); Neutrophils % (auto) 56.3 %; Platelet Count 148 K/uL (130-400); RDW Coefficient of Variation 12.1 % (11.5-14.5); RDW Standard Deviation 38.5 fL (36.4-46.3); Red Blood Count 4.15 M/uL (4.70-6.10); White Blood Count 4.42 K/ul (4.8-10.8)
[2022-12-18] MEDS: INSULIN ASPART PER UNIT CHARGE SC SCH ×2 (08:03→12:07)
[2022-12-18] MEDS: GABAPENTIN 300 MG CAP PO SCH (08:12)
[2022-12-18] MEDS: VENLAFAXINE HCL XR 150 MG CAPXR PO SCH (08:13)
[2022-12-18] MEDS: FAMOTIDINE 20 MG TAB PO SCH (08:13)
[2022-12-18] MEDS: DOCUSATE SODIUM 100 MG CAP PO SCH (08:13)
[2022-12-18] MEDS: ARIPIprazole 1 MG/ML ORAL SOLN 150 ML BTL PO SCH (08:13)
[2022-12-18] MEDS: PANTOprazole 40 MG TAB PO SCH (08:13)
[2022-12-18 08:17] LABS: BUN Creatinine Ratio 16.7 (10-20); Calcium 8.5 mg/dl (8.6-10.3); Creatinine Clr Calc Pharmacy 158.3 ml/min; Est GFR (African American) 144.1 ml/min; Est GFR (Non-African American) 124.3 ml/min; Magnesium 1.6 mg/dl (1.7-2.4); Phosphorus 2.9 mg/dl (2.5-4.9); Potassium 4.8 mmol/L (3.5-5.1)
[2022-12-18] MEDS ORDERED: LANTUS PER UNIT CHARGE SC SCH (09:00)
--- NOTE | 2022-12-18 12:35 | Hospitalist Progress Note ---
Date of Service December 18, 2022 Assessment & Plan (1) Hyperglycemic crisis in diabetes mellitus: Plan: HHS/DKA combo hx DM1, suboptimal control as of recent hemoglobin A1c of 13.3 last September 2022 Secondary to medication noncompliance, mild cognitive impairment Admitted in ICU IVF, IV insulin Pharmacy glycemic control consultation as ordered by ER provider Update hemoglobin [id number] highly elevated at 13.6 as of 12/16/2022 Tolerated intravenous insulin and now back on subcu insulin Received IV fluid which has been discontinued Has been taking orally Check blood sugar and on sliding scale insulin Has been taking regular diet without any significant symptoms except weakness Blood sugar is stable and has been back on subcu insulin Has been stable on regular diet and the blood sugar is maintained Will be discharged home this afternoon Acute metabolic and cephalopathy Secondary to DKA, MINE and electrolyte abnormality Condition resolved Hyperkalemia, ARF, AGMA secondary to illness No evidence of any infection Elevated white count's due to DKA Received adequate amount of intravenous fluid and electrolyte replacement Electrolytes and creatinine have been normalized Electrolytes have been replaced and will recheck it tomorrow Kidney function has been getting better Electrolytes are corrected Hypertension, stable, patient not on maintenance medications Blood pressure is maintained Hyperlipidemia as per records History of schizoaffective disorder/borderline personality disorder/anxiety/mood disorder, stable as per patient No acute confusion Chronic anemia, hemoglobin better than baseline likely secondary to hemoconcentration Hemoglobin normal at 13.1 with RBC count low at 4.28 ongoing vape use Resume home neuropsychotropic meds once patient more awake. Nicotine patch as needed PT OT once medically stable DVT prophylaxis Heparin subcu Full code Will be discharged home this afternoon Admission and Anticipated Discharge Date Admission Date: December 16, 2022 Subjective 12/16/2022 The patient was seen and examined in ICU He has been feeling much better and denies any significant symptoms He missed 2 doses of his insulin prior to admission with DKA Denies any infective symptoms and has been tolerating diet Will be transferred to telemetry unit for continuation of care 12/17/2022 The patient was seen and examined in telemetry unit He has been feeling much better and has been tolerating regular diet Blood blood sugar seems to be controlled but electrolytes remains abnormal Remains generally weak 12/18/2022 The patient was seen and examined in telemetry unit He has been feeling much better without any symptoms Tolerating regular diet and blood sugar is maintained His electrolytes are corrected He will be discharged home this afternoon Review of Systems Review of Systems: All systems reviewed and are unremarkable except as noted below Physical Exam Physical Exam: Lying in bed comfortably Constitutional: well developed and well nourished; not ill appearing Eyes: PERRL, conjunctivae normal, anicteric sclerae ENMT: external ear and nose normal, oropharynx normal Neck: trachea midline, no thyromegaly Respiratory: no respiratory distress Auscultation: lungs clear to auscultation bilaterally Cardiovascular: Rate/Rhythm: regular rate and regular rhythm; not tachycardic Heart Sounds: normal S1 and normal S2; no murmur Extremities: no edema Gastrointestinal (Abdomen): Inspection/Auscultation: normal bowel sounds; abdomen not distended Percussion/Palpation: abdomen soft; abdomen nontender Musculoskeletal: No acute arthritis involving any of the joint Neurologic: normal touch/pain/proprioception and moves all extremities; no focal motor deficits Psychiatric: A+Ox3, euthymic affect Lymphatic: no cervical or axillary lymphadenopathy Results & Data Results & Data Vital Signs (Past 12 Hours) Vital Signs Temp Pulse Resp BP Pulse Ox 12/18/22 08:00 74 12/18/22 08:00 36.9 C 78 18 118/60 12/18/22 03:00 36.5 C 74 16 110/60 95 Laboratory Results Short CBC 12/18/22 Range/Units 06:39 WBC 4.42 L (4.8-10.8) K/ul Hgb 12.5 L (14.0-18.0) g/dl Hct 36.0 L (42.0-52.0) % Plt Count 148 (130-400) K/uL BMP 12/18/22 06:39 Sodium 133 L Potassium 4.8 D Chloride 102 Carbon Dioxide 26 BUN 12 Creatinine 0.72 Glucose 317 H* Calcium 8.5 L Medications Administered Current Inpatient Medications Acetaminophen (Acetaminophen 325 Mg Tab) 650 mg PO Q4H PRN PRN Reason: Pain or Fever Stop: 01/15/23 01:05 Last Admin: 12/17/22 06:40 Dose: 650 mg Aripiprazole (Aripiprazole 1 Mg/Ml Oral Soln 150 Ml Btl) 2 mg PO DAILY [facility] Stop: 01/15/23 08:59 Last Admin: 12/18/22 08:13 Dose: 2 mg Dextrose (Dextrose 50% 50 Ml Syringe) 25 - 50 ml IV UD PRN; Protocol PRN Reason: Hypoglycemia Protocol Stop: 01/15/23 01:14 Docusate Sodium (Docusate Sodium 100 Mg Cap) 100 mg PO DAILY [facility] Stop: 01/15/23 08:59 Last Admin: 12/18/22 08:13 Dose: Not Given Famotidine (Famotidine 20 Mg Tab) 20 mg PO DAILY [facility] Stop: 01/15/23 08:59 Last Admin: 12/18/22 08:13 Dose: 20 mg Gabapentin (Gabapentin 300 Mg Cap) 300 mg PO TID [facility] Stop: 01/15/23 13:59 Last Admin: 12/18/22 08:12 Dose: 300 mg Glucagon (Glucagon For Inj 1 Mg Vial) 1 mg IM UD PRN; Protocol PRN Reason: Hypoglycemia Protocol Stop: 01/15/23 01:14 Glucose (Glucose 40% Gel 15 Gm Tube) 15 - 30 gm PO UD PRN; Protocol PRN Reason: Hypoglycemia Protocol Stop: 01/15/23 01:14 Glucose (Glucose 10 Tab/Tube) 4 - 8 tab PO UD PRN; Protocol PRN Reason: Hypoglycemia Protocol Stop: 01/15/23 01:14 Heparin Sodium (Porcine) (Heparin Sod 5,000 Unit/0.5 Ml Vial) 5,000 units SQ Q8 [facility] Stop: 01/15/23 05:59 Last Admin: 12/18/22 06:20 Dose: Not Given Insulin Human Regular 250 (units/ Sodium Chloride) 250 mls @ 3.6 mls/hr IV .Q24H [facility]; Protocol Stop: 01/14/23 22:14 Last Titration: 12/16/22 15:16 Dose: Infused Insulin Aspart (Insulin Aspart Per Unit Charge) 0 units SC ACHS [facility] Stop: 01/15/23 07:44 Last Admin: 12/18/22 12:07 Dose: 15 units Insulin Glargine (Lantus Per Unit Charge) 35 units SC DAILY [facility] Stop: 01/17/23 08:59 Last Admin: 12/18/22 08:03 Dose: 35 units [place] Carbonate ([place] Carbonate 450 Mg Tabcr) 450 mg PO HS [facility] Stop: 01/15/23 20:59 Last Admin: 12/17/22 20:36 Dose: 450 mg Miscellaneous (Carbohydrates For Hypoglycemia ) 15 - 30 gm PO UD PRN PRN Reason: Hypoglycemia Treatment Stop: 01/15/23 01:14 Miscellaneous Information (Pharmacy Glycemic Mgmt Consult) 1 each N/A UD PRN PRN Reason: Consult Stop: 01/14/23 22:02 Ondansetron HCl (Ondansetron Inj 2 Mg/Ml 2 Ml Vial) 4 mg IV Q6H PRN PRN Reason: Nausea And Vomiting Stop: 01/16/23 05:19 Last Admin: 12/17/22 05:38 Dose: 4 mg Pantoprazole Sodium (Pantoprazole 40 Mg Tab) 40 mg PO DAILY [facility] Stop: 01/15/23 08:59 Last Admin: 12/18/22 08:13 Dose: 40 mg Trazodone HCl (Trazodone Hcl 100 Mg Tab) 100 mg PO HS PRN PRN Reason: Sleep Stop: 01/15/23 06:31 Last Admin: 12/17/22 20:44 Dose: 100 mg Venlafaxine HCl (Venlafaxine Hcl Xr 150 Mg Capxr) 150 mg PO QAM [facility] Stop: 01/15/23 08:59 Last Admin: 12/18/22 08:13 Dose: 150 mg
--- NOTE | 2022-12-18 12:45 | Pharmacy Report ---
Pharmacy Glycemic Short Note 2 - Date of Service December 18, 2022 - Glycemic Short BSG Results (Last 24 hours): 12/17/22 12/17/22 12/18/22 16:15 20:33 06:39 Glucose 317 H* POC Glucose 197 H 173 H 12/18/22 12/18/22 12/18/22 07:20 07:21 11:24 Glucose POC Glucose 359 H* 350 H* 233 H OUTPATIENT ANTIDIABETIC REGIMEN: * Lantus 100 units SQ qAM (per patient) * Novolog 10 units TIDM HbA1C: 13.6% ASSESSMENT: 12/18/22 * BSGs yesterday were [phone] mg/dL. Patient received 87 units of insulin (35 units of Lantus + 52 units of bolus). * Fasting today is 350 mg/dL but per nursing report patient was eating throughout the night. * Lantus transition to morning completed today. Continue 35 units daily. * Continue Novolog as BSGs were well controlled yesterday. BACKGROUND * Patient is a type 1 diabetic admitted in DKA. Missed a couple of days of insulin at home - non-compliant. Initial labs: pH-7.06, AG-35, bicarb-5, BSG- 964mg/dL . Insulin infusion per DKA protocol initiated. Pharmacy consulted to assist with glycemic management. * Insulin infusion initiated last night ~2300 and ran overnight until held this AM for BSG 133mg/dL. Labs this AM: pH-7.24, AG-18, bicarb-17. Infusion rate decreased to 2.5 unit/hr. Goal range adjusted to 150-250mg/dL. Patient is still tired and not taking PO. Plan to transition to SQ pending lunch labs (will transition once AG closed, bicarb >15, and pH>7.3 and pt tolerating PO). * IVF- D51/2NS w/ 20mEQ KCl @ 250mL/hr. K-4.6mmol/L this AM. PLAN FOR INPATIENT GLYCEMIC CONTROL: * Hold outpatient oral diabetes medications * Basal insulin * Lantus 35 units SQ daily * Bolus insulin * NovoLog per scale ACHS or Q6hrs while NPO * Goal Range: Low 110 mg/dL - High 140 mg/dL * Correction Factor: 25mg/dL/unit * Nutritional / Prandial insulin per carb ratio of 1 unit per 6 grams CHO consumed
--- NOTE | 2022-12-18 16:33 | Discharge Summary ---
Date of Service December 18, 2022 Admission HPI Per Admitting Provider History obtained from patient and records. Medical history significant for DM 1, hypertension, hyperlipidemia, GERD, history SMA syndrome, schizoaffective disorder/borderline personality disorder/anxiety/mood disorder, mild cognitive impairment, chronic anemia (baseline hemoglobin of 11), ongoing vape use. Patient diagnosed to have DM 1 since age 9. Multiple admissions at the [facility] since 2018 for DKA. Four admissions so far in 2022. Last confinement was 2 months ago. Patient in [employer] the last 2 days to talk at a mental health conference. He left his insulin supplies at home in [facility]. Last night, patient noted nausea, vomiting, abdominal discomfort and shortness of breath which happens when he starts 'DKA-ing'. No actual chest pain or headache symptoms. Blood sugar 900s upon arrival at the ER. Multiple IVF boluses and IV insulin initiated at the ER. Patient starting to feel better. Medical History as above Surgical History : Tonsillectomy/adenoidectomy, cholecystectomy, duodenojejunostomy Family History : DM, heart disease Personal/Social history : Vape use, no EtOH intake Admission Exam Per Admitting Provider Physical Exam: GENERAL: Episodic lethargy, slightly uncomfortable, pleasant, no respiratory distress SKIN: Pallor, warm HEENT: Bespectacled, pale palpebral conjunctivae, no ptosis, dry buccal mucosa NECK : Supple, no tenderness CHEST : CTA, no tenderness HEART : Tachycardic, no obvious murmurs ABDOMEN: Some distention, minimal epigastric tenderness EXTREMITIES : No LE swelling/tenderness, no other conspicuous deformities noted NEUROLOGIC : Coherent, no facial asymmetry, no other gross focality Principal Diagnosis DKA, hyperglycemic state, MINE with electrolyte abnormalities, schizoaffective disorder, hypertension Discharge Exam Lying in bed comfortably Constitutional well developed and well nourished; not ill appearing Eyes PERRL, conjunctivae normal, anicteric sclerae ENMT external ear and nose normal, oropharynx normal Neck trachea midline, no thyromegaly Respiratory no respiratory distress Auscultation: lungs clear to auscultation bilaterally Cardiovascular Rate/Rhythm: regular rate and regular rhythm; not tachycardic Heart Sounds: normal S1 and normal S2; no murmur Extremities: no edema Gastrointestinal (Abdomen) Inspection/Auscultation: normal bowel sounds; abdomen not distended Percussion/Palpation: abdomen soft; abdomen nontender Neurologic normal touch/pain/proprioception and moves all extremities; no focal motor deficits Psychiatric A+Ox3, euthymic affect Lymphatic no cervical or axillary lymphadenopathy Discharge Data Allergies Allergy/AdvReac Type Severity Reaction Status Date / Time No Known Allergies Allergy Verified 12/15/22 22:06 Consultations 12/15/22 23:00 ED Decision to Admit Stat 12/16/22 01:06 Consult Machine Shop Instructor Routine Diabetes Follow up Diabetes Follow-up Needed for HgbA1c >9% Hospital Course (1) Hyperglycemic crisis in diabetes mellitus: HHS/DKA combo hx DM1, suboptimal control as of recent hemoglobin A1c of 13.3 last September 2022 Secondary to medication noncompliance, mild cognitive impairment Admitted in ICU IVF, IV insulin Pharmacy glycemic control consultation as ordered by ER provider Update hemoglobin [id number] highly elevated at 13.6 as of 12/16/2022 Tolerated intravenous insulin and now back on subcu insulin Received IV fluid which has been discontinued Has been taking orally Check blood sugar and on sliding scale insulin Has been taking regular diet without any significant symptoms except weakness Blood sugar is stable and has been back on subcu insulin Has been stable on regular diet and the blood sugar is maintained Will be discharged home this afternoon Acute metabolic and cephalopathy Secondary to DKA, MINE and electrolyte abnormality Condition resolved Hyperkalemia, ARF, AGMA secondary to illness No evidence of any infection Elevated white count's due to DKA Received adequate amount of intravenous fluid and electrolyte replacement Electrolytes and creatinine have been normalized Electrolytes have been replaced and will recheck it tomorrow Kidney function has been getting better Electrolytes are corrected Hypertension, stable, patient not on maintenance medications Blood pressure is maintained Hyperlipidemia as per records History of schizoaffective disorder/borderline personality disorder/anxiety/mood disorder, stable as per patient No acute confusion Chronic anemia, hemoglobin better than baseline likely secondary to hemoconcentration Hemoglobin normal at 13.1 with RBC count low at 4.28 ongoing vape use Resume home neuropsychotropic meds once patient more awake. Nicotine patch as needed PT OT once medically stable DVT prophylaxis Heparin subcu Full code Will be discharged home this afternoon Total Time Total Time Spent Total Time Spent (In Minutes): 35 minutes Discharge Plan Discharge Items Patient Disposition: Home - Self-Care Reason For Visit: HYPERGLYCEMIC CRISIS Discharge Diagnosis: DKA, hyperglycemic state, MINE with electrolyte abnormalities, schizoaffective disorder, hypertension Condition on Discharge: Fair Activity: Resume your previous activity Non-emergency contact: Primary Care Provider Call non-emergency contact if: you have any medication questions and your symptoms worsen Follow-up/Referrals: Macy Nolen DO [Primary Care Provider] - (Date & Time 12/23/2022 12:00 PM Provider Macy Nolen DO Department [facility] ) Diet: Carb Count or DM1 Addtl Attending Provider Instructions: Please take precautions to avoid falls Please take your medications as advised especially take your insulin as advised Please give appointment with your PCP and make an early appointment to see your 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 Pending Studies at Discharge: No Stand-Alone Forms: My [employer], Smoking Cessation Medications and DC Order Prescriptions: Continued acetaminophen [Tylenol] 325 mg Tablet 650 mg PO Q4H PRN (Reason: PAIN/FEVER) ondansetron HCl 4 mg Tablet 4 mg PO Q8H PRN (Reason: NAUSEA/VOMITING) venlafaxine [Effexor XR] 150 mg Capsule,Extended Release 24hr 150 mg PO QAM lithium carbonate 450 mg Tablet Extended Release 450 mg PO HS famotidine 20 mg Tablet 20 mg PO DAILY trazodone 100 mg Tablet 100 mg PO HS PRN (Reason: Sleep) pantoprazole 40 mg Tablet,Delayed Release (Dr/Ec) 40 mg PO DAILY docusate sodium 100 mg Capsule 100 mg PO DAILY gabapentin 300 mg Capsule 300 mg PO TID insulin aspart U-100 [Novolog FlexPen U-100 Insulin] 100 unit/mL (3 mL) Insulin Pen 10 unit SUBCUT TIDM Rx Instructions: INJECT 10 UNITS SC TIDM, PLUS CF 1:35 OVER 150 aripiprazole [Abilify] 2 mg Tablet 2 mg PO DAILY insulin glargine [Lantus Solostar U-100 Insulin] 100 unit/mL (3 mL) Insulin Pen 100 unit SUBCUT QAM Discharge Orders: Discharge Order (Routine); Ordered 12/18/22 Ordered By: Laverne Akhtar Admission Data Admit Date/Time: 12/16/22 00:28 Attending Provider: Laverne Akhtar Admit Provider: Monroe Bauer Primary Care Provider: Macy Nolen Other Providers: Monroe Bauer ; Raffi Manuel
== END 2022-12-18 15:25 | disposition home or self-care (01) | DRG 637 ==
LOC: ED 21:18 → 1E 12-16 00:28 → 2S 12-16 12:02